=== PATIENT | male | born 1975 | race Caucasian/White ===

== ENCOUNTER → 2023-06-05 07:23 | Outpatient (REF) | payer BC, SELFPAY | LOC: DHCBS HW 07:23 | PROVIDERS: ATTENDING PHYSICIAN Nuclear Medicine Nuclear Cardiology; FAMILY PHYSICIAN Internal Medicine | DX: R07.9 Chest pain, unspecified (principal); R06.09 Other forms of dyspnea; E11.9 Type 2 diabetes mellitus without complications; E78.2 Mixed hyperlipidemia; R55 Syncope and collapse; F17.200 Nicotine dependence, unspecified, uncomplicated | CPT/HCPCS: 93306 ==

== ENCOUNTER → 2023-06-06 07:42 | Outpatient (REF) | payer BC, SELFPAY | LOC: DHCBC/DCA 07:42 | PROVIDERS: ATTENDING PHYSICIAN Nuclear Medicine Nuclear Cardiology; FAMILY PHYSICIAN Internal Medicine | DX: R07.9 Chest pain, unspecified (principal); R06.09 Other forms of dyspnea; E11.9 Type 2 diabetes mellitus without complications; E78.2 Mixed hyperlipidemia; R55 Syncope and collapse; F17.200 Nicotine dependence, unspecified, uncomplicated | CPT/HCPCS: 78452; 93017; A9500 ==

== ENCOUNTER 2023-06-14 08:52 | Day surgery (SDC) | payer BC, SELFPAY ==
[2023-06-14] MEDS: NSS 1000 IV ×2 (09:45→13:00)
[2023-06-14 09:46] VITALS: BMI 28.2
[2023-06-14 09:48] LABS: Glucose - Point of Care 217 mg/dl (70-99)
[2023-06-14 09:55] VITALS: BP 130/83
[2023-06-14] MEDS: LOW STRENGTH ASPIRIN 81 MG PO ×5 (10:15→10:29)
[2023-06-14 10:58] LABS: Hematocrit 39.4 % (39.0-52.0); Hemoglobin 13.9 g/dL (13.0-18.0); Mean Corp Hgb Conc. 35.3 g/dL (33.0-37.0); Mean Corpuscular Hgb 30.3 pg (27.0-31.0); Mean Platelet Volume 10.3 fL (7.4-10.4); Platelet Count 221 10^3/uL (130-400); Red Blood Cell Count 4.58 10^6/uL (4.70-6.10); Red Cell Dist. Width 12.2 % (11.5-14.5); White Blood Cell Count 13.3 10^3/uL (4.8-10.8)
[2023-06-14 11:58] LABS: ACT-LR - POC 229 Seconds (116-155)
--- NOTE | 2023-06-14 13:11 | ITS.CL.CATH ---
[facility] - Catheterization
Cardiac Catheterization
Procedure Report:
LEFT HEART CATHETERIZATION
Date of Procedure: June 14, 2023
Referring: Dr. Tanvir Stephenson
PROCEDURES:
1. Left heart catheterization with coronary and single-plane left-ventricular free
2. Hemodynamic assessment of the LAD with the iFR measuring below the ischemic threshold
INDICATION: This is a 48-year-old diabetic gentleman with a recent hemoglobin A1c measuring 11.9%. His last LDL cholesterol measured 165 mg/dL. He was referred to our office for evaluation of hypertension and chest pressure. He has a history of
tobacco abuse less than 1/2 pack/day for many years. He has noticed some chest and back tightness with exertion as well as dyspnea on exertion. A recent stress study was notable for the development of chest tightness with exercise. He exercised
on a standard Kevin protocol for 7: 46 achieving 8.75 METS of physical activity. Exercise tolerance was below average. Perfusion was notable for a medium area of mildly decreased uptake that was fixed in the basal inferior to mid inferior segment
and apical inferior segment consistent with infarction with soft tissue attenuation which partially improves with prone imaging. The LVEF is estimated at 42% on the stress study and 40-45% by echocardiogram where global hypokinesis was noted.
ACCESS: Right radial artery, 6 Fr. sheath
HEMODYNAMICS : (mmHg)
AO (s/d) : 148/82
LV (s/d) : 148/12
LVEDP : 28
CORONARY FINDINGS
DOMINANCE: Left
LEFT MAIN: Normal
LEFT ANTERIOR DESCENDING: The LAD arises normally from the left main and has a 30% calcified ostial stenosis greater than 50% stenosis in the mid LAD beyond the second diagonal branch. The mid to distal LAD has minor irregularities. The first
diagonal branch is rather small. The second diagonal branch has a 40% mid stenosis. The distal LAD wraps completely around the apex supplying a portion of the inferior wall. The iFR in the apical LAD serially measured at or below the ischemic
threshold at 0.85, 0.84, 0.86, 0.86, 0.88, 0.89
CIRCUMFLEX: The circumflex is a dominant vessel. OM1 is small. OM 2 is large and bifurcates proximally with a long 50-60% stenosis near its origin extending into the larger daughter branch beyond the bifurcation. The mid circumflex beyond the
second obtuse marginal branch has a 60% stenosis then a long 65% stenosis. The distal circumflex gives rise to a small caliber PDA.
RIGHT CORONARY ARTERY: Medium caliber nondominant vessel with 50% mid stenosis. There is a marginal branch arising from the nondominant vessel that has an 95% proximal stenosis
VENTRICULOGRAPHY: Left ventriculography was performed in an VIERA projection. The digital single-plane left ventricular ejection fraction is visually estimated at 45-50%
HEMODYNAMIC ASSESSMENT OF THE LAD WITH A [place] VERRATA WIRE: The origin of the left main was cannulated with a 6 Fr JL 4 guide catheter. Intravenous heparin was administered and the ACT was followed during the procedure. Two hundred micrograms
of intracoronary nitroglycerin was given through the guide catheter. A [place] Verrata wire was advanced to the guide catheter tip and normalized to guide catheter pressure. The Verrata wire was then carefully manipulated across the stenosis at
the origin of the LAD and beyond the stenosis in the mid LAD. The tip of the wire was positioned in the distal LAD where the iFR serially measured at the ischemic threshold at 0.88, 0.89, and 0.90. The Verrata wire was withdrawn to the guide
catheter and there appeared to be baseline drift with the Pd/Pa measuring 0.96. The Verrata wire was re-normalized to the guide catheter pressure then readvanced to the distal LAD where the iFR serially measured below the ischemic threshold in the
more significant manner with the iFR now measuring 0.86, 0.86, 0.84, and 0.85. The wire was withdrawn to the guide catheter tip where the Pd/Pa measured 0.98.
RADIATION SUMMARY: Fluoro Time (min): 9.6, Dose (mGy): 934, DAP (Gy.cm2) : 74.2
Closure Device: TR band
CONCLUSIONS
1. Left dominant circulation with complex atherosclerotic disease involving OM 2 and the AV continuation of the circumflex to the PDA. The iFR in the LAD was measured on 2 separate occasions. The first iFR measurements were at the ischemic
threshold while the second IFR series of measurements measured below the ischemic threshold at 0.86, 0.86, 0.84, and 0.85. There is high-grade atherosclerotic disease in the nondominant right coronary artery and should be treated medically
2. Mid range LVEF estimated 45-50%
RECOMMENDATIONS
1. Patient will be referred for CT surgical evaluation to consider coronary artery bypass grafting with VO-LAD, D2, OM 2, and PDA.
2. Aspirin 81 mg daily
3. Continue high intensity statin therapy
4. Start carvedilol 3.125 mg p.o. twice daily and lisinopril 2.5 mg daily given diabetes, borderline LVEF, and extensive coronary artery disease. Needs aggressive control of blood pressure and lipids
5. Needs strict control of his diabetes which is currently not well-controlled with a last hemoglobin A1c measuring 11.9%
Copy to: Dr. Tanvir Stephenson
[2023-06-14 13:15] VITALS: BP 124/93
[2023-06-14 13:25] VITALS: BP 147/87
[2023-06-14 13:29] LABS: ACT-LR - POC > 397 Seconds (116-155)
== END 2023-06-14 16:16 | disposition home or self-care (01) ==
LOC: CATH 08:52
PROVIDERS: ATTENDING PHYSICIAN Internal Medicine Interventional Cardiology; FAMILY PHYSICIAN Internal Medicine; OTHER PHYSICIAN Nuclear Medicine Nuclear Cardiology
DX: I25.10 Atherosclerotic heart disease of native coronary artery without angina pectoris (principal); R07.89 Other chest pain; Z87.891 Personal history of nicotine dependence; R06.09 Other forms of dyspnea; R73.03 Prediabetes; Z79.82 Long term (current) use of aspirin; Z79.84 Long term (current) use of oral hypoglycemic drugs
CPT/HCPCS: 82962; 85027; 85347; 93458; 93571; C1769; C1894

== ENCOUNTER 2023-07-08 05:03 | Inpatient (IN) | payer BC, SELFPAY ==
[2023-06-27 08:38] VITALS: BMI 27.9
[2023-06-27 09:28] LABS: % Basophils 0.3 % (0-2); % Eosinophils 1.9 % (0-6); % Immature Granulocytes 0.5 % (0-0.5); % Lymphocytes 16.3 % (20.5-51.1); % Monocytes 5.8 % (1.7-9.3); % Neutrophils 75.2 % (42.2-75.2); Absolute Eosinophils 0.2 10^3/uL (0-0.7); Absolute Immature Granulocytes 0.1 10^3/uL (0-0.05); Absolute Monocytes 0.7 10^3/uL (0.1-0.6); Absolute Neutrophils 9.4 10^3/uL (1.4-6.5); Hematocrit 43.4 % (39.0-52.0); Hemoglobin 14.9 g/dL (13.0-18.0); Mean Corp Hgb Conc. 34.3 g/dL (33.0-37.0); Mean Corpuscular Hgb 29.6 pg (27.0-31.0); Mean Corpuscular Volume 86.1 fL (80.0-94.0); Mean Platelet Volume 10.6 fL (7.4-10.4); Nucleated Red Blood Cells % 0 % (-); Platelet Count 299 10^3/uL (130-400); Red Blood Cell Count 5.04 10^6/uL (4.70-6.10); Red Cell Dist. Width 12.5 % (11.5-14.5); White Blood Cell Count 12.5 10^3/uL (4.8-10.8)
[2023-06-27 09:40] LABS: Urine Albumin 2+ (Neg - Trace); Urine Bilirubin 1+ (Negative); Urine Character Clear (Clear); Urine Color Yellow; Urine Glucose Trace (Negative); Urine Ketone 1+ (Negative); Urine Leukocyte Trace (Negative); Urine Nitrite Negative (Negative); Urine Occult Blood Negative (Negative); Urine Urobilinogen 1+ (Neg - 1+)
[2023-06-27 09:42] LABS: APTT 34.8 Sec (23.4-35.0); INR 1.04; PT 13.6 Sec (11.4-14.6)
[2023-06-27 10:36] LABS: Urine Red Blood Cell 0-2 /HPF (0-2)
[2023-06-27 10:37] LABS: Urine Bacteria Few (Negative)
--- NOTE | 2023-06-27 10:56 | CM ---
Chart reviewed. Met with the patient in PAT. 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 Patient with a supportive mother and adult daughter who live close by to help at home.
Reviewed preoperative and postoperative instructions and restrictions, along with showering instructions. Gave patient 2 soaps. Patient is agreeable to a home visit by CT Transitional RN. Dr Lovell requested the patient receive a script for GERD
and smoking cessation. I notified Calli. Patient was given a script for both and told to follow up with PCP for Chantix. Plan is for the patient to return home with CT Transitional RN.
[2023-06-27 11:15] LABS: ALT (SGPT) 36 U/L (0-50); AST (SGOT) 30 U/L (17-59); Albumin 4.4 g/dl (3.5-5.0); Alkaline Phosphatase 96 U/L (38-126); Blood Urea Nitrogen 11 mg/dl (9-20); Calcium 9.9 mg/dl (8.4-10.2); Carbon Dioxide 25 mmol/L (22-30); Chloride 102 mmol/L (98-107); Estimated Creatinine Clearance > 125 ml/min; Glucose 154 mg/dl (70-99); Potassium 4.2 mmol/L (3.5-5.1); Sodium 140 mmol/L (135-145); Total Bilirubin 0.4 mg/dl (0.2-1.3); Total Protein 8.1 g/dl (6.3-8.2); eGFR > 60.00
[2023-06-28 11:15] LABS: Glycohemoglobin (HgbA1c) 10.2 % (4.0-5.6)
[2023-07-08] VITALS (9 sets, daily range): BP systolic 82–122; BP diastolic 65–72; BMI 27.0
[2023-07-08] MEDS: PROTONIX 40 MG PO (05:30)
[2023-07-08] MEDS: MAGNESIUM OXIDE 500 MG PO (05:30)
[2023-07-08] MEDS: COREG 3.125 MG PO (05:30)
[2023-07-08] MEDS: BACTROBAN 2% OINTMENT 1 APPLIC NASAL ×2 (05:31→20:16)
--- NOTE | 2023-07-08 06:37 | W.CVOR.SURPR ---
CVOR Surgeon Immed Pre Op
-
I have examined this patient prior to performance of the scheduled procedure.
The patient's condition is unchanged from the time of the dictated/written History and
Physical and the patient is able to undergo the scheduled procedure.
After multidisciplinary discussions, revascularization plans include LENKA to LAD, GSV to D, GSV to OM, +/- GSV to PDA (small - requires intraoperative assessment)
[2023-07-08 08:11] LABS: Urine Albumin 1+ (Neg - Trace); Urine Bilirubin Negative (Negative); Urine Character Clear (Clear); Urine Color Yellow; Urine Glucose Negative (Negative); Urine Ketone Negative (Negative); Urine Leukocyte Negative (Negative); Urine Nitrite Negative (Negative); Urine Occult Blood Negative (Negative); Urine Specific Gravity 1.025 (<1.030); Urine Urobilinogen Negative (Neg - 1+)
[2023-07-08 08:18] LABS: ACT+ - POC 101 Seconds (82-134)
[2023-07-08 08:23] LABS: B.E. - POC -1.9 mmol/L; Glucose - POC 101 mg/dl (65-99); HCO3 - POC 23 mmol/L (21-29); Hematocrit - POC 35 % PCV (42-52); Hemodilution- POC No; Hemoglobin Calculated - POC 12.1; Ionized Calcium - POC 1.18 mmol/L (1.12-1.27); O2 Saturation %Calculated-POC 99.9 5 (92-96); PCO2 - POC 39 mmHg (35-45); PO2 - POC 315 mmHg (80-100); Potassium - POC 4.1 mmol/L (3.6-5.0); Sodium - POC 140 mmol/L (135-145); pH - POC 7.38 (7.35-7.45)
[2023-07-08 08:43] LABS: Urine Mucus Many
[2023-07-08 08:44] LABS: Urine Calcium Oxalate Crystals Seen
[2023-07-08 08:45] LABS: Urine Bacteria Many (Negative); Urine Urothelial Cell 0-2 /LPF (FEW)
--- NOTE | 2023-07-08 11:01 | CM ---
pt in OR today, cm to follow.
[2023-07-08 11:09] LABS: B.E. - POC -1.5 mmol/L; Glucose - POC 205 mg/dl (65-99); HCO3 - POC 24 mmol/L (21-29); Hematocrit - POC 31 % PCV (42-52); Hemodilution- POC Yes; Hemoglobin Calculated - POC 10.7; Ionized Calcium - POC 0.97 mmol/L (1.12-1.27); O2 Saturation %Calculated-POC 99.9 5 (92-96); PCO2 - POC 40 mmHg (35-45); PO2 - POC 266 mmHg (80-100); Potassium - POC 5.4 mmol/L (3.6-5.0); Sodium - POC 136 mmol/L (135-145); pH - POC 7.38 (7.35-7.45)
[2023-07-08 11:37] LABS: B.E. - POC -2.6 mmol/L; Glucose - POC 208 mg/dl (65-99); HCO3 - POC 23 mmol/L (21-29); Hematocrit - POC 30 % PCV (42-52); Hemodilution- POC Yes; Hemoglobin Calculated - POC 10.2; Ionized Calcium - POC 1.08 mmol/L (1.12-1.27); O2 Saturation %Calculated-POC 99.7 5 (92-96); PCO2 - POC 43 mmHg (35-45); PO2 - POC 203 mmHg (80-100); Potassium - POC 4.1 mmol/L (3.6-5.0); Sodium - POC 139 mmol/L (135-145); pH - POC 7.34 (7.35-7.45)
[2023-07-08 11:42] LABS: ACT+ - POC 641 Seconds (82-134)
[2023-07-08 12:20] LABS: B.E. - POC -3.8 mmol/L; Glucose - POC 163 mg/dl (65-99); HCO3 - POC 22 mmol/L (21-29); Hematocrit - POC 30 % PCV (42-52); Hemodilution- POC Yes; Hemoglobin Calculated - POC 10.3; Ionized Calcium - POC 1.11 mmol/L (1.12-1.27); O2 Saturation %Calculated-POC 99.8 5 (92-96); PCO2 - POC 44 mmHg (35-45); PO2 - POC 271 mmHg (80-100); Potassium - POC 4.2 mmol/L (3.6-5.0); Sodium - POC 138 mmol/L (135-145); pH - POC 7.32 (7.35-7.45)
[2023-07-08 12:22] LABS: ACT+ - POC 548 Seconds (82-134)
[2023-07-08 12:23] LABS: ACT+ - POC > 1003 Seconds (82-134)
[2023-07-08 12:23] LABS: ACT+ - POC > 1003 Seconds (82-134)
[2023-07-08 13:05] LABS: ACT+ - POC 98 Seconds (82-134)
[2023-07-08 13:06] LABS: B.E. - POC -6.7 mmol/L; Glucose - POC 111 mg/dl (65-99); HCO3 - POC 20 mmol/L (21-29); Hematocrit - POC 30 % PCV (42-52); Hemodilution- POC Yes; Hemoglobin Calculated - POC 10.1; Ionized Calcium - POC 1.39 mmol/L (1.12-1.27); O2 Saturation %Calculated-POC 99.9 5 (92-96); PCO2 - POC 44 mmHg (35-45); PO2 - POC 347 mmHg (80-100); Potassium - POC 3.3 mmol/L (3.6-5.0); Sodium - POC 143 mmol/L (135-145); pH - POC 7.26 (7.35-7.45)
--- NOTE | 2023-07-08 13:35 | W.PN.CARDCBS ---
Addendum entered and electronically signed by Simon Almendarez MD 07/08/23 16:18:
I saw and examined the patient.
The PNP or PA's note was reviewed and I agree with the note.
Comment: General: Sedate
Neck: Supple, no JVD, HJR, carotids +2 B/L, no bruits bilaterally.
Heart: Non displaced PMI, RRR, no obvious murmurs, No S3, S4, no rubs.
Lungs: Scattered rhonchi
Sternal dressings noted
Extremities: No clubbing, cyanosis or edema bilaterally.
Neuro: Sedate
Claudy has a history of cardiomyopathy, type 2 diabetes, hyperlipidemia, hypertension, tobacco abuse. Ejection fraction was 45 to 50% in May 2023. He underwent catheterization which revealed three-vessel disease. He is now seen status post
three-vessel CABG with VO to LAD, vein graft to diagonal, vein graft to OM. He remains intubated and sedate. He is on no pressors at present and cardiac index is 2.7. Remains in sinus rhythm.
Original Note:
Today's Communication / Plan
-
Wean vent as tolerated, anticipated extubation later this evening
Post op ECG stable
Currently requiring Levo, wean as tolerated
Monitor post op Hgb and electrolytes
Impression / Plan
-
PCP:
Data Capture Specialist: Dr. Stephenson
Impression:
Chest pain
Abnormal stress test
Multivessel CAD on cardiac cath 06/14/23
s/p CABG x 3 (VO to LAD, SVG to diag, SVG to OM) 07/08/2023
Cardiomyopathy
Type 2 diabetes
Hyperlipidemia
Hypertension
Tobacco abuse
Echo 06/05/2023: EF 45-50%. Stage I DD. No significant valvular disease
Exercise nuclear ST 06/06/2023: 7:46, 90% APMHR, 8.75 METS, 4/10 CP; Fixed defect in basal inferior, mid inferior, apical inferior segments c/w infarct vs soft tissue attenuation. DTS +3.5
Cardiac cath 06/14/2023: LM:NL; LAD:ost 30%, mid 50%, distal LI, iFR in the apical LAD serially measured at or below the ischemic threshold at 0.85, 0.84, 0.86, 0.86, 0.88, 0.89; Diag2 mid 40%; LCX:mid 60% then long 65%; OM2 prox 50-60%; RCA mid 50%,
marginal prox 95%; LVG EF 45-50%
Plan:
-Evaluated as outpt in April 2023 for with exertional CP, TORRES. Had abnormal stress test and reduced EF on echo 45-50% in May 2023 and underwent cardiac cath 06/14/2023 which demonstrated multivessel CAD.
-Underwent successful CABG x 3 ((VO to LAD, SVG to diag, SVG to OM) 07/08/[address] Gama
-Patient seen immediate post op, remains intubated and sedated
-Currently on Levo at 2 mcg/min. Wean as tolerated
-Post op ECG stable showing Sinus rhythm, QTc 500 ms. Monitor on tele
-Follow hgb, immediate post op 10.6
-Cardiomyopathy resume GDMT once able to tolerate orals {Was on Coreg, Lisinopril, ASA, Crestor as outpatient}
-HgA1c 11.2% on outpt labs 05/18/23; started on Metformin, Ozempic as outpatient
-Hyperlipidemia, resume high dose Crestor when able to tolerate orals
HPI:
This is a 48-year-old diabetic gentleman with a recent hemoglobin A1c measuring 11.9%.� His last LDL cholesterol measured 165 mg/dL.� He was referred to our office for evaluation of hypertension and chest pressure.� He has a history of tobacco abuse
less than 1/2 pack/day for many years.� He has noticed some chest and back tightness with exertion as well as dyspnea on exertion.� A recent stress study was notable for the development of chest tightness with exercise.� He exercised on a standard
Kevin protocol for 7: 46 achieving 8.75 METS of physical activity.� Exercise tolerance was below average.� Perfusion was notable for a medium area of mildly decreased uptake that was fixed in the basal inferior to mid inferior segment and apical
inferior segment consistent with infarction with soft tissue attenuation which partially improves with prone imaging.� The LVEF is estimated at 42% on the stress study and 40-45% by echocardiogram where global hypokinesis was noted.
Progress Note - Data Capture Specialist
Subjective
Date of Service: July 08, 2023
Patient seen and examined. Remains intubated and sedated. On low dose Levo at 2 mcg/min
Objective
Labs:
06/27/23 08:52
06/27/23 08:52
Labs
Hgb 14.9 g/dL (13.0-18.0) 06/27/23 08:52
Hct 43.4 % (39.0-52.0) 06/27/23 08:52
Plt Count 299 10^3/uL (130-400) 06/27/23 08:52
PT 13.6 Sec (11.4-14.6) 06/27/23 08:52
INR 1.04 06/27/23 08:52
APTT 34.8 Sec (23.4-35.0) 06/27/23 08:52
Sodium 140 mmol/L (135-145) 06/27/23 08:52
Potassium 4.2 mmol/L (3.5-5.1) 06/27/23 08:52
BUN 11 mg/dl (9-20) 06/27/23 08:52
Creatinine 0.7 mg/dL (0.7-1.3) 06/27/23 08:52
Glucose 154 mg/dl (70-99) H 06/27/23 08:52
Vital Signs and I&O:
Vital Signs
Temp Pulse Resp Pulse Ox
97.7 F 96 16 100
07/08/23 05:29 07/08/23 05:29 07/08/23 05:29 07/08/23 05:29
Vital Signs
Temp Pulse Resp Pulse Ox
97.7 F 96 16 100
07/08/23 05:29 07/08/23 05:29 07/08/23 05:07/08/23 05:29
Physical Exam
Physical Exam
GEN: Intubated and sedated
HEENT: supple, anicteric, mmm
LUNGS: CTA, no wheezes/rales
CV: Reg, S1/S2, + rub
ABD: soft, BS+, NT/ND
EXT: No edema, clubbing or cyanosis
NEURO: unable to assess, currently sedated
SKIN: No rash, warm, dry
--- NOTE | 2023-07-08 13:37 | W.IMMPOSTOP ---
Addendum entered and electronically signed by Juancarlos Gama MD 07/08/23 15:01:
[id number]
Original Note:
Surgical Immed Post Op Note
-
CARDIAC SURGERY OPERATIVE NOTE:
Preoperative Dx:
Multivessel CAD
Poorly controlled DM
Postoperative Dx:
Same
Procedures:
1) Median sternotomy
2) Takedown of LENKA (narrow pedicle)
3) Endoscopic harvest/prep of RLE GSV
4) CABG x 3 (LENKA to LAD, GSV to D, GSV to OM)
Surgeon:
Juancarlos Gama M.D.
Assistants:
Marsha Stahl P.A.-C.; endoscopic harvest/prep of RLE GSV, cafe assistant throughout, [id number] chest closure
Bianca Marie P.A.-C.; closure of endoscopic RLE GSV harvest sites, [id number] check closure
Anesthesia:
Benny Drake M.D. and Etelvina Main, C.R.N.A.
Perfusion:
Geneva Gonsalez C.C.P.; XC: 87min, CPB: 125min
Findings:
LENKA was a healthy appearing conduit w/ brisk flow, ELD 2.25mm
GSV was healthy appearing conduit w/ ELD 3.00-3.25mm
The apical 1/3 of the LAD was visible on the epicardial surface, the vessel took a deep intramyocardial course at the junction between it's middle and distal third. The vessel was thin walled and fragile, but was devoid of lipomatous changes &
atherosclerotic disease at anastomotic site, ELD 2.50mm - very brisk blood flow observed entering LAD & it's tributaries upon release of bulldog clamp
The major D was visible on the epicardial surface. This vessel had scattered calcifications and lipomatous changes throughout. At the anastomotic site, the vessel was thin walled and fragile, but was devoid of lipomatous changes & atherosclerotic
disease. ELD 2.50mm
The OM was visible on the epicardial surface. This vessel had scattered calcifications and lipomatous changes throughout. At the anastomotic site, the vessel was thin walled and fragile, but was devoid of lipomatous changes & atherosclerotic
disease. ELD 2.75mm. Upon completion of the first anastomosis at this site, hand injected revealed unexpected significant leaking by the right lateral aspect of the anastomosis by the heal. The anastomotic sutures looked ideal. I therefore was
concerned about coronary pathology & opted to take down this anastomosis. Upon inspection the coronary had suffered a tear at this location extending down from the suture to the base of the vessel. This was amenable to repair w/ slight extension
of the coronary arteriotomy & re-anastomosis. I was very pleased w/ the final result.
The LPDA/LPLB were all submillimeter vessels - bypass not performed
Excellent flow in all grafts on intraoperative transit-time U/S assessment
LVEF: 60-65% w/o RWMA and no sig valvular pathology.
Implants:
CT x 4 (B/L pleural, inferior mediastinal, superior mediastinal)
Sternal wires x 7
Sternal 'X' plate w/ 4 - 16mm and 4 - 14mm screws
Sternal 'Square' plate w/ 4 - 12mm screws
Condition:
86 sinus w/ isoelectric STs. 112/64. 27/19. CVP 11. CO/CI: 4.3/2.11. 100%
GTTS: insulin 0.5, precedex 0.5, levophed 6
Stable/guarded to recovery
--- NOTE | 2023-07-08 14:03 | CON.INTV ---
Consultation
Consultation Request
Date/Time Consultation Requested: 07/08/2023
Date/Time Consultation Performed: 07/08/2023
Requesting Provider: Dr. Gama
Performing Provider: Dr. Bo Fuentes
Reason for Consultation: Postoperative ICU care
Medical History
-
History of Present Illness:
48-year-old man with history of poorly controlled diabetes, who is a smoker, hypertension discovered to have multivessel coronary artery disease. He was evaluated by cardiothoracic surgery in the outpatient setting and he was deemed candidate for
revascularization. Admitted for surgery, coronary artery bypass underwent on 07/08/[address] Gama without significant complications.
Patient currently is in the critical care unit where he is intubated, sedated.
Chest tube in place without air leak.
ET tube in place without secretions
Records reviewed.
Past Medical History
Past Medical History: Other (See assessment and plan section)
Social History
Tobacco: Smoker (Started smoking at age 7, half a pack per day)
Alcohol: Other (Weekends.)
Drug: None
Personal:
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
Family History
Family History: Unable to Obtain
Allergies / Home Medications
Allergies
Allergy/AdvReac Type Severity Reaction Status Date / Time
codeine Allergy Itching Verified 06/26/23 14:52
Home Medications
Medication Instructions Recorded Confirmed Last Taken Type
aspirin 81 mg chewable tablet 81 mg PO DAILY #1 tab 06/14/23 07/08/23 1 Day Ago Rx
~07/07/23
carvedilol 3.125 mg tablet 3.125 mg PO BID #60 tabs 06/14/23 07/08/23 07/07/23 20:00 Rx
lisinopril 2.5 mg tablet 2.5 mg PO DAILY #30 tabs 06/14/23 07/08/23 07/07/23 08:00 Rx
multivitamin 1 tab PO DAILY 06/14/23 07/08/23 1 Day Ago History
~07/07/23
rosuvastatin 40 mg tablet 40 mg PO DAILY 06/14/23 07/08/23 1 Day Ago History
~07/07/23
semaglutide 0.25 mg or 0.5 mg (2 0.5 mg SC SA 06/14/23 07/08/23 1 Day Ago History
mg/3 mL) subcutaneous pen injector ~07/07/23
(Ozempic)
metformin 1,000 mg tablet 1,000 mg PO BID 06/26/23 07/08/23 07/07/23 20:00 History
Review of Systems
-
Unable to Obtain full review of systems at this time due to: Patient Intubation
Vitals / Labs / Diagnostic Testing
Vital Signs
Temp Pulse Resp Pulse Ox
97.7 F 96 16 100
07/08/23 05:29 07/08/23 05:29 07/08/23 05:29 07/08/23 05:29
Diagnostic Testing:
Physical Exam
-
HEENT: Normocephalic and Other ( ET tube in place)
Cardiovascular: S1/S2 and Other (Incision dressed and dry.)
Respiratory: Clear and Other (Chest tube in place without air leak)
GI: Soft
Neurology: Other (Sedated, on mechanical ventilation. Intubated.)
Skin: Good Color
General: Respiratory Distress (n)
Assessment
-
Status post coronary artery bypass Dr. Gama
Postoperative mechanical ventilation
Postoperative anemia
Conditions present prior admission:
Type 2 diabetes
Hyperlipidemia
Tobacco abuse
Hypertension
Multivessel coronary artery disease
Echocardiogram 06/05/2023: Showed ejection fraction 45 to 50%. Stage I diastolic dysfunction. No significant valvular abnormalities.
Plan/ recommendations:
He is doing well postop-currently on mechanical ventilation and appears comfortable.
ABG reviewed:Adequate ventilation and oxygenation.
Continue SIMV mode with no change
Spontaneous breathing trial per protocol once sedation wears off.
Anemia noted-no evidence of acute bleeding
Follow H&H serially
Hemodynamics -acceptable without vasoactive drugs.
Chest tube with no excessive drainage-no air leak.
Chest x-ray reviewed: With no pneumothorax or fluid collections.
Remain nothing by mouth
Head of the bed elevation
Glycemic control per protocol, Insulin gtt.
DVT prophylaxis when safe from the surgical perspective.
Critical care statement: A total of 32 minutes of critical care time was provided for this patient today. This includes management of unstable vital signs, evaluation of the patient at bedside, reviewing the patient's pertinent medical records
including ventilator settings, arterial blood gases, radiographs, microbiology, laboratory evaluations and discussion with primary team, critical care nursing, and respiratory therapy.
[2023-07-08] MEDS: NSS 500 IV (14:30)
[2023-07-08] MEDS: ZINACEF 1500 MG IV ×2 (14:30→17:27)
[2023-07-08] MEDS: STERILE WATER FOR INJECTION 16 ML IV ×2 (14:30)
--- NOTE | 2023-07-08 14:30 | PTCARENOTE ---
Updated report received at bed side from anesthesia staff. Patient recieved status post CABG x 3: usual lines, NSR. No epicardial wires. No blood products intraop. CI's > 2.2. CHest tubes x 4 meds x 2 and R/L pleural: no 'dumping.' Remains intubated
and sedated/vented. Incidental finding as per cvor: patient has genital warts under foreskin penis. See flowrecord for remaining assessments.
[2023-07-08 14:33] LABS: Glucose - Point of Care 115 mg/dl (70-99)
[2023-07-08 14:49] LABS: Hematocrit 30.1 % (39.0-52.0); Hemoglobin 10.6 g/dL (13.0-18.0); Platelet Count 188 10^3/uL (130-400)
[2023-07-08 14:50] LABS: B.E. -3.7 mmol/L; HCO3 22.1 mmol/L (21-28); Ionized Calcium 1.26 mMOL/L (1.15-1.33); PCO2 42 mmHg (35-48); PO2 213 mmHg (83-108); Sodium 139 mMOL/L (136-145); pH 7.33 (7.35-7.45)
[2023-07-08 14:52] LABS: Mixed Venous O2 Saturation 86.8 %
[2023-07-08] MEDS: NSS (PRESERVATIVE FREE) 8 ML IV ×2 (14:56→20:17)
[2023-07-08] MEDS: PEPCID 20 MG IV ×2 (14:56→20:17)
[2023-07-08 15:00] LABS: INR 1.37; PT 16.7 Sec (11.4-14.6)
[2023-07-08 15:01] LABS: APTT 30.6 Sec (23.4-35.0)
[2023-07-08 15:04] LABS: Blood Urea Nitrogen 11 mg/dl (9-20); Estimated Creatinine Clearance > 125 ml/min; Glucose 110 mg/dl (70-99); Magnesium 2.5 mg/dl (1.6-2.3)
--- NOTE | 2023-07-08 15:06 | PN.DE.MGMTRT ---
Insulin Management
- -
07/08/2023: Diabetes Management Consult
48 year old male admitted 07/[address] surgery.
He is now s/p CABG. Doing well postop, currently on mechanical ventilation, unable to interview, appears comfortable.
PMH includes: CAD- MVD, HTN, HLD, active tobacco use, T2DM. A1C 10.2%, was taking Ozempic 0.5mg Q Sat and Metformin 1000mg BID.
He is currently on critical care glycemic protocol and will remain on drip x [address] surgery protocol.
Will continue to follow and assess for readiness to transition to SQ insulin in combination with his OP regimen.
Diabetes History
- -
Type of Diabetes: 2
Pre-Admission Diabetes Regimen
07/08/23
14:32
Creatinine 0.7
Lab Results
Hemoglobin A1c 10.2 % (4.0-5.6) H 06/27/23 08:52
Insulin Pump Settings
IP Diabetes Regimen
07/08/23 07/08/23
14:31 14:32
Glucose 110 H
POC Glucose 115 H
Patient Education
[2023-07-08] MEDS: ALBUMIN 5% 250 IV ×2 (15:10→18:00)
[2023-07-08] MEDS: VERSED 0.5 MG IV (15:30)
--- NOTE | 2023-07-08 16:00 | PTCARENOTE ---
Following simple commands and moving all extremities x 4. CPAP wean trial.
[2023-07-08 16:09] LABS: Glucose - Point of Care 150 mg/dl (70-99)
--- NOTE | 2023-07-08 16:40 | W.PN.UPDATE ---
Update Note
Progress Note Update
48-year-old man with history of poorly controlled diabetes, who is a smoker, hypertension discovered to have multivessel coronary artery disease.� He was evaluated by cardiothoracic surgery in the outpatient setting and he was deemed candidate for
revascularization.� Admitted for surgery, coronary artery bypass underwent on 07/08/[address] Gama without significant complications.
Crystalloid:� 1800
U.O.:� 500
UF:� 1800
Blood:� None
Wires:� None
Inotropes:� None
Pressors:� Levo
Sedatives:� Precedex
�
NEURO: sedated on precedex, pupils +1mm B/L
RESP: #8OT @24cm> 14/500/60/5. Lungs clear B/L. 2 mediastinal (0cc on arrival) and R/L pleural (40cc on arrival) chest tubes to -20cm suction. Sanguineous drainage
CV: RRR +S1, S2, no S3, no�rub, no murmur. Dermabond to median sternotomy. RIJ w/[place] locked @ 51cm.
ABD: round, soft, no BS
EXT: no edema, +2/4 DP pulses B/L, no femoral bruit, Right LE ALEC wrap intact; left radial A-line intact
: [place] with clear yellow urine
�
A/P: POD #0 s/p CABG x3 (VO-LAD, SVG- Diag, SVG-OM)
BRITTNEE: EF�60-65% w/o RWMA
- wean and extubate as able
- will need instruction regarding antibiotic prophylaxis for dental and invasive procedures
- Wean levo with MAPs >65
- ASA 81mg PO when tolerating PO
- Monitor CT output
- Monitor UOP
- Monitor EKG
- Cardiology consulted
�
# acute surgical blood loss anemia-expected
- trend CBC
�
# T2DM (A1C 10.2)
- insulin infusion x 48h
- resume metformin
- DM management HOME STAGER consulted
�
# Hyperlipidemia
- resume�statin when tolerating PO
[2023-07-08 17:18] LABS: Glucose - Point of Care 107 mg/dl (70-99)
[2023-07-08 17:21] LABS: HCO3 23.1 mmol/L (21-28); Ionized Calcium 1.17 mMOL/L (1.15-1.33); O2 Saturation % 98.6 % (94-98); PCO2 40 mmHg (35-48); PO2 171 mmHg (83-108); Potassium 3.9 mMOL/L (3.5-5.1); pH 7.37 (7.35-7.45)
--- NOTE | 2023-07-08 17:30 | PTCARENOTE ---
Hemodynamically stable. ABG acceptable for extubation to 6l nasal canula.
[2023-07-08] MEDS: DILAUDID 0.25 MG IV ×2 (17:45→22:07)
[2023-07-08] MEDS: KCL 50 IV ×2 (17:46→18:42)
[2023-07-08] MEDS: CRESTOR PO (17:51)
[2023-07-08] MEDS: NOVOLOG FLEXPEN SC ×2 (17:51→17:52)
[2023-07-08] MEDS: PACERONE PO (17:53)
[2023-07-08] MEDS: TYLENOL PO ×2 (17:53)
[2023-07-08] MEDS: CALCIUM CHLORIDE 10% SYRINGE 50 MG IV (17:58)
[2023-07-08] MEDS: CALCIUM CHLORIDE 10% SYRINGE 50 ML IV (17:58)
[2023-07-08 18:18] LABS: Glucose - Point of Care 99 mg/dl (70-99)
[2023-07-08 18:25] LABS: Hematocrit 28.4 % (39.0-52.0); Hemoglobin 9.9 g/dL (13.0-18.0); Platelet Count 159 10^3/uL (130-400)
[2023-07-08 19:15] LABS: Glucose - Point of Care 103 mg/dl (70-99)
[2023-07-08] MEDS: ROXICODONE 5 MG PO (19:39)
[2023-07-08] MEDS: LOW STRENGTH ASPIRIN 81 MG PO (19:39)
--- NOTE | 2023-07-08 20:00 | PTCARENOTE ---
Pt received from taya RN. Pt AAOx3. Pt SR on monitor. HR 90s. +rub. [place] @48 cm CDI. CO: 6.25/ CI: 3.06/ SVR: 832. CVP: 6-10, PAP 20s/10s. CVP and PAP zeroed and flushed. Left arterial line CDI/zeroed/flushed. BP 100s/50s-60s. Mediastinal CT x2
to -20 suction, no air-leak/crepitus, +tidaling, output appropriate at this time. Right/Left pleural CT to -20 suction, no air-leak/crepitus, +tidaling, output appropriate at this time. Lung sounds diminished bilaterally at the base. Pt on
4 L NC. POX 99%. Temp sensing [place] catheter CDI and draining clear/yellow urine. Abdomen soft/nontender. Hypoactive BS. All surgical sites stable - assessment as documented in work-list. Right IJ cordis CDI. Right forearm PIV CDI. Glycemic protocol
followed. Pt c/o pain - see JUN.
[2023-07-08] MEDS: LOPRESSOR 12.5 MG PO (20:16)
[2023-07-08] MEDS: SENOKOT-S 1 TABLET PO (20:16)
[2023-07-08] MEDS: STERILE WATER FOR INJECTION 8.30000000000000071 ML IV (20:17)
[2023-07-08] MEDS: ZINACEF 750 MG IV (20:17)
[2023-07-08] MEDS: TYLENOL 650 MG PO (20:17)
[2023-07-08 21:10] LABS: Glucose - Point of Care 110 mg/dl (70-99)
[2023-07-08] MEDS: PACERONE 200 MG PO (22:08)
[2023-07-08 23:05] LABS: Glucose - Point of Care 94 mg/dl (70-99)
[2023-07-09] VITALS (26 sets, daily range): BP systolic 88–125; BP diastolic 62–78; PULSE 99; O2SAT 98–99; BMI 27.4
[2023-07-09] MEDS: TYLENOL 650 MG PO ×5 (00:07→20:48)
[2023-07-09] MEDS: ROXICODONE 5 MG PO ×2 (00:07→06:21)
--- NOTE | 2023-07-09 00:16 | PTCARENOTE ---
Pt reassessed. SR to sinus tach on monitor. HR 90s-100s. [place] intact. CVP/PAP zeroed and flushed. Left arterial line intact/zeroed/flushed. BP 100s-110s/50-60s. Pt on 2 L NC. POX 100%. CT assessment unchanged from previous. [place] catheter CDI. All
surgical sites stable. Glycemic protocol followed. Pt c/o pain - see MAR. Vital signs and interventions as documented.
[2023-07-09 01:08] LABS: Glucose - Point of Care 106 mg/dl (70-99)
[2023-07-09 02:09] LABS: Glucose - Point of Care 95 mg/dl (70-99)
[2023-07-09 03:04] LABS: Glucose - Point of Care 96 mg/dl (70-99)
[2023-07-09] MEDS: DILAUDID 0.25 MG IV (03:27)
[2023-07-09 03:38] LABS: Hematocrit 28.6 % (39.0-52.0); Hemoglobin 9.9 g/dL (13.0-18.0); Mean Corp Hgb Conc. 34.6 g/dL (33.0-37.0); Mean Corpuscular Hgb 29.7 pg (27.0-31.0); Mean Corpuscular Volume 85.9 fL (80.0-94.0); Mean Platelet Volume 10.8 fL (7.4-10.4); Platelet Count 161 10^3/uL (130-400); Red Blood Cell Count 3.33 10^6/uL (4.70-6.10); Red Cell Dist. Width 12.4 % (11.5-14.5); White Blood Cell Count 17.6 10^3/uL (4.8-10.8)
[2023-07-09 04:03] LABS: Blood Urea Nitrogen 12 mg/dl (9-20); Calcium 9.3 mg/dl (8.4-10.2); Carbon Dioxide 23 mmol/L (22-30); Chloride 104 mmol/L (98-107); Estimated Creatinine Clearance > 125 ml/min; Glucose 95 mg/dl (70-99); Potassium 4.2 mmol/L (3.5-5.1); Sodium 139 mmol/L (135-145); eGFR > 60.00
[2023-07-09 04:24] LABS: Glucose - Point of Care 100 mg/dl (70-99)
[2023-07-09] MEDS: STERILE WATER FOR INJECTION 8.30000000000000071 ML IV ×2 (04:32→11:52)
[2023-07-09] MEDS: ZINACEF 750 MG IV ×2 (04:33→11:51)
--- NOTE | 2023-07-09 04:34 | W.PN.CT ---
Today's Communication / Plan
-
-pod #1
-no issues overnight
-CI 3.51, CO 7.16. Drips: insulin
-CT output: 2 meds 90/160, 2 pleur 85/205 in 12/24 hrs
-deline
-continue insulin for 48 hrs
-d/c Arrington
-current meds (ASA, Crestor, Lopressor, Amio). Consider Plavix
-encourage IS, OOB
-appreciate everyone's input
Assessment / Plan
-
- mv-CAD - s/p CABG x 3 (LENKA to LAD, GSV to D, GSV to OM); EVH RLE on 07/08/[address] Gama, pod #1
- Intraop BRITTNEE: LVEF: 60-65% w/o RWMA and no sig valvular pathology
- T2DM (A1C 10.2)
- HTN/HLD
- Hx Near syncope
- Hx night sweats
- DVT of RUE
- Current smoker since age 7
- Hx R ankle fx
- Acute postop blood loss anemia- no active bleed
- Acute postop atelectasis
- Acute postop hypovolemia with subsequent hypervolemia
- Suspected acute postop pericarditis/+ rub
Discussed patient care with: Nursing and Care Team
Subjective
Procedure
- s/p CABG x 3 (LENKA to LAD, GSV to D, GSV to OM); EVH RLE on 07/08/[address] Gama
-
Date of Service: July 09, 2023
Objective Data
-
PT 16.7 Sec (11.4-14.6) H 07/08/23 14:32
INR 1.37 07/08/23 14:32
APTT 30.6 Sec (23.4-35.0) 07/08/23 14:32
Vital Signs
Vital Signs
Temp Pulse Resp BP Pulse Ox
98.5 F 101 16 101/71 100
07/09/23 00:00 07/09/23 00:00 07/09/23 00:00 07/09/23 00:00 07/09/23 00:00
CT Intake/Output/Weight
07/08/23 07/08/23 07/09/23
06:59 18:59 06:59
Intake Total 833.2 / 1051.8 218.6 / 1051.8
Output Total 590 / 1355 765 / 1355
Balance 243.2 / -303.2 -546.4 / -303.2
SaO2: 100
Physical Exam
-
General: Awake and AOx3
Cardiovascular: Regular rate & rhythm, No Murmurs and Rub
Respiratory: Decreased Breath Sounds
Sternum: Stable
Incision: Clean, Dry and Dressing Intact
Extremities: No Edema (1+ DP b/l)
Abdomen: soft, nontender, nondistended, decreased abdomen sounds
Data Reviewed
-
Lab Results: Results Reviewed
Medications: Active Meds Reviewed
Chest X-Ray: Report Reviewed and Image Reviewed
ECG: Report Reviewed and Image Reviewed
--- NOTE | 2023-07-09 04:44 | PTCARENOTE ---
Pt reassessed. SR to sinus tach on monitor. HR 90s-100s. BP 100s/60s. Pt on 2 L NC. POX 100%. CT assessment unchanged from previous. Left A-line dc'd per order. Wittman dc'd per order. All surgical sites stable. Arrington catheter CDI. Glycemic protocol
followed. Vital signs and interventions as documented in work-list. Call chu within reach.
[2023-07-09 06:18] LABS: Glucose - Point of Care 92 mg/dl (70-99)
--- NOTE | 2023-07-09 07:00 | PTCARENOTE ---
Bedside walking rounds report received. patient seen on rounds oob in chair on room air and tolerating well. Awake alert and oriented x 3. Sinus tach on monitor with rates in the low 100's to 110's. Flat affect. Pericardial friction rub audible and
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 Plan: bulb chest tubes x 4 (x2 meds and r/l pleural) and dc ahn this am. IS to 1000. See flowrecord for remaining assessments
[2023-07-09] MEDS: ZOFRAN 4 MG IV (07:35)
[2023-07-09] MEDS: LOPRESSOR 12.5 MG PO (07:36)
[2023-07-09] MEDS: CRESTOR 40 MG PO (07:36)
[2023-07-09] MEDS: SENOKOT-S 1 TABLET PO ×2 (07:36→20:47)
[2023-07-09] MEDS: LOW STRENGTH ASPIRIN 81 MG PO (07:36)
[2023-07-09] MEDS: MAGNESIUM OXIDE 500 MG PO ×2 (07:36→20:47)
[2023-07-09] MEDS: BACTROBAN 2% OINTMENT 1 APPLIC NASAL ×2 (07:37→20:49)
[2023-07-09] MEDS: PACERONE 200 MG PO ×3 (07:37→22:00)
--- NOTE | 2023-07-09 07:45 | W.PN.ANS.POP ---
Anesthesia Post Operative
- Anesthesia Post Op Note
Vital Signs Stable-See Nursing Note: Yes
Airway Patent: Yes
Adequate Pain Control: Yes
Change in Mental Status: No
Current Postoperative Nausea & Vomiting: No
Anesthesia Complications: No
General Anesthetic Recall: No
Unplanned Admission: No
Post Op Hydration Adequate: Yes
[2023-07-09 07:51] LABS: Glucose - Point of Care 124 mg/dl (70-99)
[2023-07-09] MEDS: NOVOLOG FLEXPEN SC ×2 (07:51→15:12)
--- NOTE | 2023-07-09 08:09 | PN.DE.MGMTRT ---
Insulin Management
- -
07/09/2023: Diabetes Management Consult
48 year old male admitted 07/[address] surgery. Active tobacco user with T2DM. A1C 10.2%
POD #1 s/p CABG x3 Extubated yesterday, A/O x3, doing well postop, sitting up in chair, c/o mild surgical pain.
Pt remains on CCGP, glucose in range of 92 to 124, requiring 0.4 to 1.2 units of insulin/hr, was taking Ozempic 0.5mg Q Sat and Metformin 1000mg BID.
Discussed current A1C and average blood sugar of 240. Pt states that his A1C was >12% 2-3 months ago and that it has come down.
He has a glucose monitor at home and has been monitoring his blood sugars. He was able to pull up his glucose log in his phone that showed premeal range of 150-202. He has not been monitoring fasting blood sugars due to his sporadic wake up times.
Discussed insulin therapy, specifically long acting insulin, pt is agreeable, states he has taken insulin in the past and is comfortable with injections. Discussed and set monitoring schedule of AC/HS especially now that he is going home on insulin.
Continue current plan of management with [facility]. Will follow in AM and assess for readiness to transition to SQ insulin
Discussed and encouraged smoking cessation. Will provide OP DSME class information tomorrow.
Diabetes History
- -
Type of Diabetes: 2
Pre-Admission Diabetes Regimen
07/08/23 07/09/23
14:32 03:02
Creatinine 0.7 0.6 L
Lab Results
Hemoglobin A1c 10.2 % (4.0-5.6) H 06/27/23 08:52
Insulin Pump Settings
IP Diabetes Regimen
07/08/23 07/08/23 07/08/23
14:31 14:32 16:08
Glucose 110 H
POC Glucose 115 H 150 H
03/11/24 03/11/24 03/11/24
17:06 18:07 19:13
Glucose
POC Glucose 107 H 99 103 H
07/08/23 07/08/23 07/09/23
21:08 23:04 01:06
Glucose
POC Glucose 110 H 94 106 H
07/09/23 07/09/23 07/09/23
02:08 03:02 04:23
Glucose 95
POC Glucose 95 96 100 H
07/09/23 07/09/23
06:17 07:50
Glucose
POC Glucose 92 124 H
Patient Education
[2023-07-09] MEDS: KCL PO (08:48)
[2023-07-09] MEDS: NEURONTIN 100 MG PO ×3 (08:59→22:01)
[2023-07-09] MEDS: TORADOL 15 MG IV (08:59)
[2023-07-09] MEDS: LIDOCAINE 4% PATCH 1 PATCH TOPICAL (09:00)
--- NOTE | 2023-07-09 09:58 | W.PN.CARDCBS ---
Today's Communication / Plan
-
Cont post op care.
Remains sinus
HR and bp stable off pressors.
Impression / Plan
-
.
PCP:
Countersinker: Dr. Stephenson
Impression:
Chest pain
Abnormal stress test
Multivessel CAD on cardiac cath 06/14/23
s/p CABG x 3 (VO to LAD, SVG to diag, SVG to OM) 07/08/2023
Cardiomyopathy
Type 2 diabetes with poor outpt control HbA1c 11.2
Hyperlipidemia
Hypertension
Tobacco abuse
Echo 06/05/2023: EF 45-50%. Stage I DD. No significant valvular disease
Exercise nuclear ST 06/06/2023: 7:46, 90% APMHR, 8.75 METS, 4/10 CP; Fixed defect in basal inferior, mid inferior, apical inferior segments c/w infarct vs soft tissue attenuation. DTS +3.5
Cardiac cath 06/14/2023: LM:NL; LAD:ost 30%, mid 50%, distal LI, iFR in the apical LAD serially measured at or below the ischemic threshold at 0.85, 0.84, 0.86, 0.86, 0.88, 0.89; Diag2 mid 40%; LCX:mid 60% then long 65%; OM2 prox 50-60%; RCA mid 50%,
marginal prox 95%; LVG EF 45-50%
Plan:
Claudy has a history of cardiomyopathy, type 2 diabetes, hyperlipidemia, hypertension, tobacco abuse.� Ejection fraction was 45 to 50% in May 2023.� He underwent catheterization despite fixed defects given symptoms and echo which revealed
three-vessel disease.� He is now status post three-vessel CABG with VO to LAD, vein graft to diagonal, vein graft to OM.�
Cont post op care.
Remains sinus
HR and bp stable off pressors.
Monitor H/H
Discussed with nursing.
HPI:
This is a 48-year-old diabetic gentleman with a recent hemoglobin A1c measuring 11.9%.� His last LDL cholesterol measured 165 mg/dL.� He was referred to our office for evaluation of hypertension and chest pressure.� He has a history of tobacco abuse
less than 1/2 pack/day for many years.� He has noticed some chest and back tightness with exertion as well as dyspnea on exertion.� A recent stress study was notable for the development of chest tightness with exercise.� He exercised on a standard
Kevin protocol for 7: 46 achieving 8.75 METS of physical activity.� Exercise tolerance was below average.� Perfusion was notable for a medium area of mildly decreased uptake that was fixed in the basal inferior to mid inferior segment and apical
inferior segment consistent with infarction with soft tissue attenuation which partially improves with prone imaging.� The LVEF is estimated at 42% on the stress study and 40-45% by echocardiogram where global hypokinesis was noted.
Progress Note - Countersinker
Subjective
Date of Service: July 09, 2023
Pt seen and examined. No complaints. No chest pain or shortness of breath.
Objective
Labs:
07/09/23 03:02
07/09/23 03:02
Labs
Hgb 9.9 g/dL (13.0-18.0) L 07/09/23 03:02
Hct 28.6 % (39.0-52.0) L 07/09/23 03:02
Plt Count 161 10^3/uL (130-400) 07/09/23 03:02
PT 16.7 Sec (11.4-14.6) H 07/08/23 14:32
INR 1.37 07/08/23 14:32
APTT 30.6 Sec (23.4-35.0) 07/08/23 14:32
Sodium 139 mmol/L (135-145) 07/09/23 03:02
Potassium 4.2 mmol/L (3.5-5.1) 07/09/23 03:02
BUN 12 mg/dl (9-20) 07/09/23 03:02
Creatinine 0.6 mg/dL (0.7-1.3) L 07/09/23 03:02
Glucose 95 mg/dl (70-99) 07/09/23 03:02
Vital Signs and I&O:
Vital Signs
Temp Pulse Resp BP Pulse Ox
98 F 102 18 88/63 97
07/09/23 07:34 07/09/23 09:45 07/09/23 07:34 07/09/23 09:00 07/09/23 09:15
Vital Signs
Temp Pulse Resp BP Pulse Ox
98 F 102 18 88/63 97
07/09/23 07:34 07/09/23 09:45 07/09/23 07:34 07/09/23 09:00 07/09/23 09:15
Intake & Output
07/07/23 07/08/23 07/09/23 07/10/23
06:59 06:59 06:59 06:59
Intake Total 1175.8 / 1175.8 532.0 / 532.0
Output Total 2150 / 2150 140 / 140
Balance -974.2 / -974.2 392.0 / 392.0
Physical Exam
Physical Exam
General: No acute distress, AAOX3
Neck: Negative JVD
Heart: Regular, Negative S3 positive S1/S2, Negative S4, No murmur
Lungs: CTA b/l, negative wheezes/rales/rhonchi
Thorax: CT in place
Abd: Positive BS, NT/ND, neg rebound/rigidity/guarding
Ext: Negative cyanosis/clubbing/edema
Neuro: nonfocal
[2023-07-09 10:18] LABS: Glucose - Point of Care 148 mg/dl (70-99)
--- NOTE | 2023-07-09 11:00 | W.PN.INTV ---
Today's Communication / Plan
Recommendations
Continue postoperative care
Follow chest tube output
Follow H&H
Increase activity as able
Analgesia with narcotics, monitor respiratory status closely
Sign off
Assessment
-
Status post coronary artery bypass 3// Dr. Gama
Postoperative mechanical ventilation
Postoperative anemia
Conditions present prior admission:
Type 2 diabetes
Hyperlipidemia
Tobacco abuse
Hypertension
Multivessel coronary artery disease
Echocardiogram 06/05/2023: Showed ejection fraction 45 to 50%. Stage I diastolic dysfunction. No significant valvular abnormalities.
Plan/ recommendations:
Doing well postoperative day 1
Extubated, on low rate supplemental oxygen.
Encourage incentive spirometry
Increase activity per protocol
Continue with analgesia.
Anemia noted-no evidence of acute bleeding
Follow H&H serially
Hemodynamically stable. Off vasopressors.
Chest tube with no excessive drainage-no air leak.
Chest x-ray reviewed: With no pneumothorax or fluid collections.
Chest tube management per primary team.
Advance diet as tolerated.
Glycemic control per protocol, Insulin gtt.
DVT prophylaxis when safe from the surgical perspective.
No additional recommendation from the critical care perspective. Sign off.
Subjective Dataa
Subjective Data
Date of Service:
Date of Service: July 09, 2023
Chief Complaint: Branch Sales Manager Follow Up (Status post coronary artery bypass)
Subjective:
Extubated, patient states her pain is relatively controlled
Denies shortness of breath at rest
Denies significant coughing or phlegm production.
Review of Systems
General: Fever (n)
Cardiopulmonary: Dyspnea (none at rest), Cough (n) and Sputum Production (n)
GI: Abdominal Pain (n), Nausea (n) and Vomiting (n)
Objective Data
Data Reviewed
Vital Signs / I&O / Oxygen:
Vital Signs
Temp Pulse Resp BP Pulse Ox
98 F 101 18 94/65 97
07/09/23 07:34 07/09/23 10:15 07/09/23 07:34 07/09/23 10:00 07/09/23 09:15
Intake and Output
07/08/23 07/09/23 07/10/23
06:59 06:59 06:59
Intake Total 1175.8 / 1175.8 532.0 / 532.0
Output Total 2150 / 2150 140 / 140
Balance -974.2 / -974.2 392.0 / 392.0
SaO2 [CPAP/PSV] 99
SaO2 [SIMV] 100
SaO2 97
Nasal Cannula flow liters per 2
minute
Physical Exam
General: Respiratory Distress (n) and Comfortable
HEENT: Normocephalic
Cardiovascular: S1-S2
Respiratory: Clear, Non-Labored Respirations and Chest Tube (No air leak or excessive drainage)
GI: Soft and Non Distended
Neurology: Awake
Labs/Micro/Reports
Lab Data
07/09/23 03:02
07/09/23 03:02
Laboratory Results
07/08/23 07/08/23
14:32 17:03
PT 16.7 H
INR 1.37
APTT 30.6
pH 7.33 L 7.37
pCO2 42 40
pO2 213 H 171 H
HCO3 22.1 23.1
O2 Delivery Level
Microbiology
07/08/23 07:54 Urine Urine Culture - Final
NO GROWTH
--- NOTE | 2023-07-09 11:30 | PTCARENOTE ---
Patient back to bed with assist of 1: all 4 chest tubes to bulb suction: ahn catheter dc
[2023-07-09 12:11] LABS: Glucose - Point of Care 152 mg/dl (70-99)
[2023-07-09 14:12] LABS: Glucose - Point of Care 135 mg/dl (70-99)
[2023-07-09] MEDS: TYLENOL PO (15:12)
[2023-07-09] MEDS: NSS IV (15:13)
[2023-07-09] MEDS: COLCHICINE 0.299999999999999989 MG PO (15:33)
[2023-07-09] MEDS: PLAVIX 75 MG PO (15:33)
--- NOTE | 2023-07-09 16:00 | PTCARENOTE ---
No acute changes. Vitals stable. OOB in chair and tolerating well. Room air. No urge to void as of yet.
[2023-07-09 17:01] LABS: Glucose - Point of Care 165 mg/dl (70-99)
[2023-07-09 18:05] LABS: Glucose - Point of Care 173 mg/dl (70-99)
[2023-07-09] MEDS: NOVOLOG FLEXPEN 4 UNITS SC (19:03)
[2023-07-09 19:09] LABS: Glucose - Point of Care 156 mg/dl (70-99)
--- NOTE | 2023-07-09 20:00 | PTCARENOTE ---
Received pt from taya RN. Assisted pt out of the chair and repositioned in bed. Pt sinus tach on the monitor. HR 100s. BP 110/70. No edema. Bilateral radial and DP pulses palpable. Pt on RA. POX 97%. CTx4 to bulb & intact - see work-list for
full CT assessment and interventions. Pt voiding pancho colored urine in bathroom. Abdomen soft/nontender. +BS. All surgical sites stable. Glycemic protocol followed. See work list for full nursing assessment and VS. Call chu within reach.
[2023-07-09 20:26] LABS: Glucose - Point of Care 151 mg/dl (70-99)
[2023-07-09] MEDS: LOPRESSOR 25 MG PO (20:48)
[2023-07-09 22:05] LABS: Glucose - Point of Care 113 mg/dl (70-99)
[2023-07-09] MEDS: NOVOLIN R INSULIN INFUSION 100 IV (22:06)
[2023-07-10] VITALS (28 sets, daily range): BP systolic 94–132; BP diastolic 58–80; PULSE 91; O2SAT 98–100; BMI 27.6
--- NOTE | 2023-07-10 00:05 | PTCARENOTE ---
Previous assessment unchanged. Pt SR to sinus tach on monitor. HR 90s-100s. BP 100s-110s/60s-70s. RA. POX 97%. CTx4 to bulb intact. All surgical sites stable. Pt assisted OOB to the bathroom to void and then assisted back into bed. Glycemic protocol
followed. Call chu within reach.
[2023-07-10 00:10] LABS: Glucose - Point of Care 115 mg/dl (70-99)
[2023-07-10] MEDS: TYLENOL 650 MG PO ×7 (00:11→23:43)
[2023-07-10 02:02] LABS: Glucose - Point of Care 132 mg/dl (70-99)
[2023-07-10 03:06] LABS: Glucose - Point of Care 126 mg/dl (70-99)
[2023-07-10 04:38] LABS: Glucose - Point of Care 129 mg/dl (70-99)
--- NOTE | 2023-07-10 04:45 | PTCARENOTE ---
Previous assessment unchanged. Pt remains SR to sinus tach on monitor. HR 90s-100s. BP 110s/60-70s. Pt maintained on RA. POX 96%. Ctx4 to bulb intact. All surgical sites stable. Glycemic protocol followed. Labs drawn and sent. Pt voiding in bathroom
with assist x1. Call chu within reach.
[2023-07-10 05:04] LABS: Hematocrit 28.2 % (39.0-52.0); Hemoglobin 9.7 g/dL (13.0-18.0); Mean Corp Hgb Conc. 34.4 g/dL (33.0-37.0); Mean Corpuscular Volume 87.3 fL (80.0-94.0); Mean Platelet Volume 10.6 fL (7.4-10.4); Platelet Count 152 10^3/uL (130-400); Red Blood Cell Count 3.23 10^6/uL (4.70-6.10); Red Cell Dist. Width 12.5 % (11.5-14.5); White Blood Cell Count 14.2 10^3/uL (4.8-10.8)
[2023-07-10 05:39] LABS: Blood Urea Nitrogen 12 mg/dl (9-20); Calcium 8.6 mg/dl (8.4-10.2); Carbon Dioxide 28 mmol/L (22-30); Chloride 99 mmol/L (98-107); Estimated Creatinine Clearance > 125 ml/min; Glucose 116 mg/dl (70-99); Potassium 3.7 mmol/L (3.5-5.1); Sodium 136 mmol/L (135-145); eGFR > 60.00
--- NOTE | 2023-07-10 05:48 | W.PN.CT ---
Today's Communication / Plan
-
-pod #2
-no issues overnight
-low BP 90s on 07/08- improved
-drips: insulin
-CT output: med A 25/60, med B 35/40, pleur L 30/40, pleur R 15/25 in 12/24 hrs
-weaned off O2 - pOx98% on RA
-Lopressor was increased yesterday to 25 bid for tachycardia
-current meds (ASA, Crestor, Lopressor, Amio, Colchicine for pericarditis). Consider Plavix. Pt was also on Coreg and Lisinopril preop for CM
-appreciate DM input, transitioning from insulin drip to sq
-encourage IS, OOB, ambulate
Assessment / Plan
-
- mv-CAD - s/p CABG x 3 (LENKA to LAD, GSV to D, GSV to OM); EVH RLE on 07/08/[address] Gama, pod #2
- Intraop BRITTNEE: LVEF: 60-65% w/o RWMA and no sig valvular pathology
- T2DM (A1C 10.2)
- HTN/HLD
- Hx Near syncope
- Hx night sweats
- DVT of RUE
- Current smoker since age 7
- Hx R ankle fx
- Acute postop blood loss anemia- no active bleed
- Acute postop atelectasis
- Acute postop hypovolemia with subsequent hypervolemia
- Suspected acute postop pericarditis/+ rub
Discussed patient care with: Nursing and Care Team
Subjective
Procedure
- s/p CABG x 3 (LENKA to LAD, GSV to D, GSV to OM); EVH RLE on 07/08/[address] Gama
-
Date of Service: July 10, 2023
Objective Data
-
PT 16.7 Sec (11.4-14.6) H 07/08/23 14:32
INR 1.37 07/08/23 14:32
APTT 30.6 Sec (23.4-35.0) 07/08/23 14:32
Vital Signs
Vital Signs
Temp Pulse Resp BP Pulse Ox
98.7 F 102 16 108/67 98
07/10/23 00:00 07/10/23 00:00 07/10/23 00:00 07/10/23 00:00 07/10/23 00:00
CT Intake/Output/Weight
07/09/23 07/09/23 07/10/23
06:59 18:59 06:59
Intake Total 342.6 / 1175.8 923.2 / 979.0 55.8 / 979.0
Output Total 1560 / 2150 250 / 325 75 / 325
Balance -1217.4 / -974.2 673.2 / 654.0 -19.2 / 654.0
SaO2: 98
Physical Exam
-
General: Awake and AOx3
Cardiovascular: Regular rate & rhythm, No Murmurs and Rub
Respiratory: Decreased Breath Sounds
Sternum: Stable
Incision: Clean, Dry and Dressing IntactAbdomen: soft, nontender, nondistended, decreased abdomen sounds
Extremities: No Edema (1+ DP b/l)
Data Reviewed
-
Lab Results: Results Reviewed
Medications: Active Meds Reviewed
Chest X-Ray: Report Reviewed and Image Reviewed
ECG: Report Reviewed and Image Reviewed
[2023-07-10] MEDS: ROXICODONE 5 MG PO (05:58)
[2023-07-10 06:03] LABS: Glucose - Point of Care 136 mg/dl (70-99)
[2023-07-10 07:20] LABS: Glucose - Point of Care 131 mg/dl (70-99)
--- NOTE | 2023-07-10 08:00 | PTCARENOTE ---
pt received from previous RN, oriented, OOB in chair. drowsy. ST on the monitor, HR 100-110s. +rub. SBP 110s. palpable pulses, trace LE edema. pt on RA, 99% POX. lungs diminished. IS encouraged. CT x4 to bulb. pt abdomen s/n, denies n/v presently.
+BS, +flatus. voids. poor appetite per pt. sternal Aquacel intact. chest tube dressing c/d/i. R groin ROCÍO. RLE incision ROCÍO. RIJ cordis maintained. PIV. insulin gtt running per protocol. see worklist for VS, I&O, and assessment.
[2023-07-10] MEDS: LOW STRENGTH ASPIRIN 81 MG PO (08:12)
[2023-07-10] MEDS: CRESTOR 40 MG PO (08:13)
[2023-07-10] MEDS: PACERONE 200 MG PO ×3 (08:13→22:11)
[2023-07-10] MEDS: SENOKOT-S 1 TABLET PO ×2 (08:13→20:20)
[2023-07-10] MEDS: PLAVIX 75 MG PO (08:13)
[2023-07-10] MEDS: LIDOCAINE 4% PATCH 1 PATCH TOPICAL (08:13)
[2023-07-10] MEDS: LOPRESSOR 25 MG PO (08:13)
[2023-07-10] MEDS: NEURONTIN 100 MG PO ×3 (08:13→22:10)
[2023-07-10] MEDS: KCL 20 MEQ PO (08:13)
[2023-07-10] MEDS: MAGNESIUM OXIDE 500 MG PO ×2 (08:13→20:20)
[2023-07-10] MEDS: COLCHICINE 0.299999999999999989 MG PO (08:14)
[2023-07-10] MEDS: NOVOLOG FLEXPEN 4 UNITS SC ×2 (08:14→11:56)
[2023-07-10] MEDS: BACTROBAN 2% OINTMENT 1 APPLIC NASAL ×2 (08:15→20:20)
--- NOTE | 2023-07-10 08:25 | W.PN.CARDCBS ---
Today's Communication / Plan
-
Cont post op care.
Check EKG
Impression / Plan
-
.
PCP:
Filling Station Attendant: Dr. Stephenson
Impression:
Chest pain
Abnormal stress test
Multivessel CAD on cardiac cath 06/14/23
s/p CABG x 3 (VO to LAD, SVG to diag, SVG to OM) 07/08/2023
Cardiomyopathy
Type 2 diabetes with poor outpt control HbA1c 11.2
Hyperlipidemia
Hypertension
Tobacco abuse
Echo 06/05/2023: EF 45-50%. Stage I DD. No significant valvular disease
Exercise nuclear ST 06/06/2023: 7:46, 90% APMHR, 8.75 METS, 4/10 CP; Fixed defect in basal inferior, mid inferior, apical inferior segments c/w infarct vs soft tissue attenuation. DTS +3.5
Cardiac cath 06/14/2023: LM:NL; LAD:ost 30%, mid 50%, distal LI, iFR in the apical LAD serially measured at or below the ischemic threshold at 0.85, 0.84, 0.86, 0.86, 0.88, 0.89; Diag2 mid 40%; LCX:mid 60% then long 65%; OM2 prox 50-60%; RCA mid 50%,
marginal prox 95%; LVG EF 45-50%
Plan:
Claudy has a history of cardiomyopathy, type 2 diabetes, hyperlipidemia, hypertension, tobacco abuse.� Ejection fraction was 45 to 50% in May 2023.� He underwent catheterization despite fixed defects given symptoms and echo which revealed
three-vessel disease.� He is now status post three-vessel CABG with VO to LAD, vein graft to diagonal, vein graft to OM.�
Cont post op care.
Remains sinus, slightly more tachycardic this AM. Check EKG.
Bp remains stable.
Monitor H/H
CT coming out today.
Discussed with nursing.
HPI:
This is a 48-year-old diabetic gentleman with a recent hemoglobin A1c measuring 11.9%.� His last LDL cholesterol measured 165 mg/dL.� He was referred to our office for evaluation of hypertension and chest pressure.� He has a history of tobacco abuse
less than 1/2 pack/day for many years.� He has noticed some chest and back tightness with exertion as well as dyspnea on exertion.� A recent stress study was notable for the development of chest tightness with exercise.� He exercised on a standard
Kevin protocol for 7: 46 achieving 8.75 METS of physical activity.� Exercise tolerance was below average.� Perfusion was notable for a medium area of mildly decreased uptake that was fixed in the basal inferior to mid inferior segment and apical
inferior segment consistent with infarction with soft tissue attenuation which partially improves with prone imaging.� The LVEF is estimated at 42% on the stress study and 40-45% by echocardiogram where global hypokinesis was noted.
Progress Note - Filling Station Attendant
Subjective
Date of Service: July 10, 2023
Pt seen and examined. No complaints. No chest pain or shortness of breath.
Objective
Labs:
07/10/23 04:41
07/10/23 04:41
Labs
Hgb 9.7 g/dL (13.0-18.0) L 07/10/23 04:41
Hct 28.2 % (39.0-52.0) L 07/10/23 04:41
Plt Count 152 10^3/uL (130-400) 07/10/23 04:41
PT 16.7 Sec (11.4-14.6) H 07/08/23 14:32
INR 1.37 07/08/23 14:32
APTT 30.6 Sec (23.4-35.0) 07/08/23 14:32
Sodium 136 mmol/L (135-145) 07/10/23 04:41
Potassium 3.7 mmol/L (3.5-5.1) 07/10/23 04:41
BUN 12 mg/dl (9-20) 07/10/23 04:41
Creatinine 0.6 mg/dL (0.7-1.3) L 07/10/23 04:41
Glucose 116 mg/dl (70-99) H 07/10/23 04:41
Vital Signs and I&O:
Vital Signs
Temp Pulse Resp BP Pulse Ox
98.3 F 113 18 117/75 99
07/10/23 08:00 07/10/23 08:15 07/10/23 08:00 07/10/23 08:13 07/10/23 08:00
Vital Signs
Temp Pulse Resp BP Pulse Ox
98.3 F 113 18 117/75 99
07/10/23 08:00 07/10/23 08:15 07/10/23 08:00 07/10/23 08:13 07/10/23 08:00
Intake & Output
07/08/23 07/09/23 07/10/23 07/11/23
06:59 06:59 06:59 06:59
Intake Total 1175.8 / 1175.8 1054.9 / 1054.9
Output Total 2150 / 2150 355 / 355
Balance -974.2 / -974.2 699.9 / 699.9
Physical Exam
Physical Exam
General: No acute distress, AAOX3
Neck: Negative JVD
Heart: Regular, Negative S3 positive S1/S2, Negative S4, friction rub. No murmur
Lungs: CTA b/l, negative wheezes/rales/rhonchi
Abd: Positive BS, NT/ND, neg rebound/rigidity/guarding
Ext: Negative cyanosis/clubbing/edema
Neuro: nonfocal
[2023-07-10 09:07] LABS: Glucose - Point of Care 182 mg/dl (70-99)
--- NOTE | 2023-07-10 10:00 | PTCARENOTE ---
pt placed back to bed, CTs x4 dc'd per orders, dressing c/d/i.
[2023-07-10 10:07] LABS: Glucose - Point of Care 169 mg/dl (70-99)
[2023-07-10] MEDS: GLUCOPHAGE 1000 MG PO ×2 (10:07→17:10)
[2023-07-10] MEDS: FARXIGA 10 MG PO (10:07)
--- NOTE | 2023-07-10 10:16 | PN.DE.MGMTRT ---
Insulin Management
- -
07/10/2023 Diabetes Management Follow up
48 year old male admitted 07/[address] surgery. Active tobacco user with T2DM. A1C 10.2%, CR .6, eGFR >60. Prior to admission was taking Ozempic 0.5mg Q Sat and Metformin 1000mg BID.
POD #2 s/p CABG x3, doing well postop. Patient is awake, alert and oriented, able to discuss diabetes plan.
Pt remains on CCGP, glucose in range of 92 to 169, requiring 4 to 7 units of insulin/hr,
Discussed current A1C and average blood sugar of 240. Pt states that his A1C was >12% 2-3 months ago and that it has come down.
He has a glucose monitor at home and has been monitoring his blood sugars.
Will prepare to transition from glycemic protocol after lunch. Will restart metformin 1000 mg BID, first dose now, and add Farxiga 10 mg Daily, first dose now. Glycemic protocol to be stopped after lunch, low corrective insulin to start with
dinner. Will also start 10 units lantus at HS. If glucose is less than 100 please HOLD lantus. Will also check 3AM glucose.
Diabetes History
- -
Type of Diabetes: 2
Pre-Admission Diabetes Regimen
07/10/23
04:41
Creatinine 0.6 L
Lab Results
Hemoglobin A1c 10.2 % (4.0-5.6) H 06/27/23 08:52
Insulin Pump Settings
IP Diabetes Regimen
07/09/23 07/09/23 07/09/23
10:07 12:00 14:11
Glucose
POC Glucose 148 H 152 H 135 H
07/09/23 07/09/23 07/09/23
16:59 17:54 18:59
Glucose
POC Glucose 165 H 173 H 156 H
07/09/23 07/09/23 07/10/23
20:25 22:04 00:09
Glucose
POC Glucose 151 H 113 H 115 H
07/10/23 07/10/23 07/10/23
02:01 03:05 04:38
Glucose
POC Glucose 132 H 126 H 129 H
07/10/23 07/10/23 07/10/23
04:41 06:02 07:19
Glucose 116 H
POC Glucose 136 H 131 H
07/10/23 07/10/23
09:06 10:06
Glucose
POC Glucose 182 H 169 H
Meal type: Dinner
Meal type: Lunch
Amount consumed: 50%
Amount consumed: 90%
Patient Education
[2023-07-10 11:19] LABS: Glucose - Point of Care 110 mg/dl (70-99)
--- NOTE | 2023-07-10 11:49 | CM ---
Teddy Remy thru patient's Rx plan: [phone].
Estimated cost of BOTH medications are: $70/month or $140/3 months.
I can provide coupon card for monthly savings. Will place in chart. Updated RESTAURANT KITCHEN MANAGER via TT.
[2023-07-10] MEDS: NSS 500 IV (11:56)
[2023-07-10 11:59] LABS: Glucose - Point of Care 83 mg/dl (70-99)
--- NOTE | 2023-07-10 12:30 | PTCARENOTE ---
pt VSS, no changes in assessment. pt ambulates in hallway w/ stand by assist. IS encouraged. insulin gtt running as ordered.
[2023-07-10 12:33] LABS: Glucose - Point of Care 120 mg/dl (70-99)
[2023-07-10 13:12] LABS: Glucose - Point of Care 112 mg/dl (70-99)
[2023-07-10] MEDS: LOPRESSOR 12.5 MG PO (13:15)
[2023-07-10 14:05] LABS: Glucose - Point of Care 122 mg/dl (70-99)
[2023-07-10 15:07] LABS: Glucose - Point of Care 88 mg/dl (70-99)
--- NOTE | 2023-07-10 15:46 | CM ---
CM following for DC planning needs.
Met w/ patient at bedside. Pt. reports that he is feeling well.
Anticipated DC plan remains for home w/ CT Transitional Care RN.
CM to cont. to follow.
[2023-07-10] MEDS: TORADOL 15 MG IV (16:15)
[2023-07-10] MEDS: ZOFRAN 4 MG IV (16:25)
--- NOTE | 2023-07-10 16:28 | PTCARENOTE ---
pt VSS, pt c/o DE LEON, received scheduled Tylenol. pt c/o nausea, received PRN Zofran.
[2023-07-10 17:09] LABS: Glucose - Point of Care 109 mg/dl (70-99)
[2023-07-10 18:39] LABS: Glucose - Point of Care 149 mg/dl (70-99)
[2023-07-10] MEDS: LOPRESSOR 50 MG PO (20:20)
--- NOTE | 2023-07-10 20:30 | PTCARENOTE ---
Pt received from taya RN. Walking rounds completed. Walked with pt around the unit x2. Pt denies SOB or chest pain. Pt AAOx3. JALLOH. Following commands appropriately. SR to sinus tach on monitor. +rub. HR 90-100s. BP 115/72. Trace LE edema.
Bilateral radial and DP pulses palpable. Pt on RA. POX 99%. Lungs diminished. Deep breathing and IS encouraged. Abdomen soft/nontender. +BS. Voiding in bathroom w/o difficulty. CT dressing CDI. All surgical sites stable. Right IJ cordis CDI w/ KVO
infusing. See work-list for full nursing assessment, VS, and interventions. Call chu within reach.
[2023-07-10 22:10] LABS: Glucose - Point of Care 113 mg/dl (70-99)
[2023-07-10] MEDS: LANTUS 0.100000000000000006 UNITS SC (22:10)
[2023-07-11] VITALS (17 sets, daily range): BP systolic 93–132; BP diastolic 62–82; PULSE 89; O2SAT 97–100; BMI 27.5
--- NOTE | 2023-07-11 | PTCARENOTE ---
Previous assessment unchanged. Pt SR on monitor. HR 80s-90s. BP stable. RA. POX 99%. All surgical sites stable. Pt assisted OOB to void and repositioned back into bed. Call chu within reach.
[2023-07-11 04:24] LABS: Glucose - Point of Care 94 mg/dl (70-99)
[2023-07-11] MEDS: TYLENOL 650 MG PO (04:35)
--- NOTE | 2023-07-11 04:35 | PTCARENOTE ---
Previous assessment unchanged. Pt SR on monitor. HR 90s. BP stable. RA. POX 99%. EKG obtained. Labs drawn and sent. Blood sugar obtained. Pt assisted OOB to void in bathroom w/ stand by assist and repositioned back into bed. VS and interventions as
documented in work-list. Call chu within reach.
[2023-07-11 04:45] LABS: Hematocrit 26.6 % (39.0-52.0); Hemoglobin 9.3 g/dL (13.0-18.0); Mean Corpuscular Hgb 30.2 pg (27.0-31.0); Mean Corpuscular Volume 86.4 fL (80.0-94.0); Mean Platelet Volume 10.4 fL (7.4-10.4); Platelet Count 152 10^3/uL (130-400); Red Blood Cell Count 3.08 10^6/uL (4.70-6.10); Red Cell Dist. Width 12.9 % (11.5-14.5); White Blood Cell Count 12.1 10^3/uL (4.8-10.8)
[2023-07-11 05:08] LABS: Blood Urea Nitrogen 13 mg/dl (9-20); Calcium 8.4 mg/dl (8.4-10.2); Carbon Dioxide 26 mmol/L (22-30); Chloride 103 mmol/L (98-107); Estimated Creatinine Clearance > 125 ml/min; Glucose 81 mg/dl (70-99); Potassium 4.3 mmol/L (3.5-5.1); Sodium 134 mmol/L (135-145); eGFR > 60.00
--- NOTE | 2023-07-11 06:20 | W.PN.CT ---
Today's Communication / Plan
-
-pod #3
-doing well, no issues overnight, wants to go home
-continue current meds
-follow CXR
-encourage IS, ambulate
-likely d/c soon
Assessment / Plan
-
- mv-CAD - s/p CABG x 3 (LENKA to LAD, GSV to D, GSV to OM); EVH RLE on 07/08/[address] Gama, pod #3
- Intraop BRITTNEE: LVEF: 60-65% w/o RWMA and no sig valvular pathology
- T2DM (A1C 10.2)
- HTN/HLD
- Hx Near syncope
- Hx night sweats
- DVT of RUE
- Current smoker since age 7
- Hx R ankle fx
- Acute postop blood loss anemia- no active bleed
- Acute postop atelectasis
- Acute postop hypovolemia with subsequent hypervolemia
- Suspected acute postop pericarditis/+ rub
Discussed patient care with: Nursing and Care Team
Subjective
Procedure
- s/p CABG x 3 (LENKA to LAD, GSV to D, GSV to OM); EVH RLE on 07/08/[address] Gama
-
Date of Service: July 11, 2023
Objective Data
-
Lab Results
07/11/23 04:28
07/11/23 04:28
PT 16.7 Sec (11.4-14.6) H 07/08/23 14:32
INR 1.37 07/08/23 14:32
APTT 30.6 Sec (23.4-35.0) 07/08/23 14:32
Vital Signs
Vital Signs
Temp Pulse Resp BP Pulse Ox
98.3 F 90 16 132/82 99
07/11/23 04:30 07/11/23 04:30 07/11/23 04:30 07/11/23 04:30 07/11/23 04:30
CT Intake/Output/Weight
07/10/23 07/10/23 07/11/23
06:59 18:59 06:59
Intake Total 131.7 / 1054.9 133.5 / 223.5 90 / 223.5
Output Total 105 / 355
Balance 26.7 / 699.9 133.5 / 223.5 90 / 223.5
SaO2: 99
Physical Exam
-
General: Awake and AOx3
Cardiovascular: Regular rate & rhythm, No Murmurs and Rub
Respiratory: Decreased Breath Sounds
Sternum: Stable
Incision: Clean, Dry and Dressing Intact
Extremities: No Edema
Data Reviewed
-
Lab Results: Results Reviewed
Medications: Active Meds Reviewed
Chest X-Ray: Report Reviewed and Image Reviewed
ECG: Report Reviewed and Image Reviewed
[2023-07-11 07:54] LABS: Glucose - Point of Care 102 mg/dl (70-99)
[2023-07-11] MEDS: COLCHICINE 0.299999999999999989 MG PO (07:54)
[2023-07-11] MEDS: MAGNESIUM OXIDE 500 MG PO (07:55)
[2023-07-11] MEDS: SENOKOT-S 1 TABLET PO (07:56)
[2023-07-11] MEDS: LOW STRENGTH ASPIRIN 81 MG PO (07:57)
[2023-07-11] MEDS: FARXIGA 10 MG PO (07:57)
[2023-07-11] MEDS: NEURONTIN 100 MG PO ×2 (07:57→17:17)
[2023-07-11] MEDS: CRESTOR 40 MG PO (08:00)
[2023-07-11] MEDS: PLAVIX 75 MG PO (08:00)
[2023-07-11] MEDS: GLUCOPHAGE 1000 MG PO ×2 (08:00→17:17)
[2023-07-11] MEDS: PACERONE 200 MG PO ×2 (08:01→17:17)
[2023-07-11] MEDS: LOPRESSOR 50 MG PO (08:03)
--- NOTE | 2023-07-11 09:00 | PTCARENOTE ---
Assumed care of patient at 0730. Patient found OOB in chair at time of assessment. Patient is AOx4, follows commands appropriately, moves all extremities. Standby assist only. Lung sounds are diminished in the bases, patient is on RA saO2 96%. Heart
sounds have a regular rate and rhythm, patient is NSR on the monitor, palpable normal pulses, no observable edema. Active BS throughout all four quadrants soft nontender abdomen patient has not had post op BM at this time. There is a sternal
incision with aquacell dressing CDI, a R groin puncture approx with surg adhesive SUPERINTENDENT PLANT, RLE incision approx with surg adhesive SUPERINTENDENT PLANT. There is a R IJ cordis receiving KVO and R FA PIV for intermittent infusion. Received orders to remove IJ cordis which
was removed at approx 0830. Assisted patient with ambulation around unit. VSS. Patient has no complaints.
--- NOTE | 2023-07-11 09:01 | PN.DE.MGMTRT ---
Insulin Management
- -
07/11/2023 Diabetes Management Follow up
48 year old male admitted 07/[address] surgery. Active tobacco user with T2DM. A1C 10.2%, CR .6, eGFR >60. Prior to admission was taking Ozempic 0.5mg Q Sat and Metformin 1000mg BID.
POD #3 s/p CABG x3, doing well postop. Patient is awake, alert and oriented, able to discuss diabetes plan.
Patient received Farxiga 10 mg in am and 1000 mg metformin in AM and with dinner. Transitioned from glycemic protocol last evening after dinner, HS glucose 113, received 10 units lantus @ hs, fasting this AM 81.
Spoke with patient, he will continue metformin 1000 mg BID, farxiga 10 mg daily and lantus 10 units @ HS. He will resume his Ozempic on Saturday. Patient to test glucose before each meal and 2 hours after each meal. If glucose is above 180
patient understands to contact primary care doctor. He states he has adequate supplies for glucose testing.
Patient for possible discharge today. RX for lantus, Farxiga and pen needles in ambulatory orders.
Diabetes History
- -
Type of Diabetes: 2
Pre-Admission Diabetes Regimen
07/11/23
04:28
Creatinine 0.6 L
Lab Results
Hemoglobin A1c 10.2 % (4.0-5.6) H 06/27/23 08:52
Insulin Pump Settings
IP Diabetes Regimen
07/10/23 07/10/23 07/10/23
05:29 09:06 10:06
Glucose
POC Glucose 120 H 182 H 169 H
07/10/23 07/10/23 07/10/23
11:17 11:58 13:11
Glucose
POC Glucose 110 H 83 112 H
07/10/23 07/10/23 07/10/23
14:03 15:04 17:08
Glucose
POC Glucose 122 H 88 109 H
07/10/23 07/10/23 07/11/23
18:38 22:09 04:23
Glucose
POC Glucose 149 H 113 H 94
07/11/23 07/11/23
04:28 07:51
Glucose 81
POC Glucose 102 H
Meal type: Dinner
Meal type: Breakfast
Amount consumed: 75%
Amount consumed: 90%
Patient Education
[2023-07-11] MEDS: KCL PO (09:17)
[2023-07-11] MEDS: BACTROBAN 2% OINTMENT 1 APPLIC NASAL (09:17)
[2023-07-11] MEDS: LIDOCAINE 4% PATCH 1 PATCH TOPICAL (09:17)
--- NOTE | 2023-07-11 09:29 | W.PN.CARDCBS ---
Addendum entered and electronically signed by Jose Luis Dalal MD 07/11/23 11:21:
I saw and examined the patient.
The Drying Can Worker's note was reviewed and I agree with the note.
Comment: Briefly, 48-year-old man past medical history multivessel CAD who underwent CABG x 3 earlier this week
He is resting comfortably in the CVICU out of bed to chair, not requiring supplemental oxygen, weaned off pressor and inotrope support, chest tubes and Cordis have been removed
Telemetry reviewed showing sinus rhythm/ sinus tachycardia
Concern for pericarditis based on ECG changes and he has been started on colchicine
Otherwise stable cardiac status
We will arrange follow-up with primary cold roll inspector Dr. Stephenson
Original Note:
Today's Communication / Plan
-
doing well
follow HRs. continue lopressor
for DC soon
Impression / Plan
-
.
PCP:
Cement Truck Loader: Dr. Stephenson
Impression:
Chest pain
Abnormal stress test
Multivessel CAD on cardiac cath 06/14/23
s/p CABG x 3 (VO to LAD, SVG to diag, SVG to OM) 07/08/2023
Cardiomyopathy
Type 2 diabetes with poor outpt control HbA1c 11.2
Hyperlipidemia
Hypertension
Tobacco abuse
Echo 06/05/2023: EF 45-50%. Stage I DD. No significant valvular disease
Exercise nuclear ST 06/06/2023: 7:46, 90% APMHR, 8.75 METS, 4/10 CP; Fixed defect in basal inferior, mid inferior, apical inferior segments c/w infarct vs soft tissue attenuation. DTS +3.5
Cardiac cath 06/14/2023: LM:NL; LAD:ost 30%, mid 50%, distal LI, iFR in the apical LAD serially measured at or below the ischemic threshold at 0.85, 0.84, 0.86, 0.86, 0.88, 0.89; Diag2 mid 40%; LCX:mid 60% then long 65%; OM2 prox 50-60%; RCA mid 50%,
marginal prox 95%; LVG EF 45-50%
Plan:
-s/p CABG x 3 (VO to LAD, SVG to diag, SVG to OM) 07/08/2023
-doing well. for possible DC later today
-remains in SR, on amio and lopressor. BB dose increased to 50mg BID yesterday for tachycardia and HRs appear to be improving on review of tele
-EKG 07/09 with evidence of likely pericarditis vs early repol. on colchicine 0.3mg daily
-hgb 9.3. continue asa, plavix
-continue crestor
-prior to admission was on coreg 3.125mg BID and lisinopril 2.5mg daily
-OOB/IS
-cardiac rehab
-OP cardiac follow up arranged
-d/w nursing
HPI:
This is a 48-year-old diabetic gentleman with a recent hemoglobin A1c measuring 11.9%.� His last LDL cholesterol measured 165 mg/dL.� He was referred to our office for evaluation of hypertension and chest pressure.� He has a history of tobacco abuse
less than 1/2 pack/day for many years.� He has noticed some chest and back tightness with exertion as well as dyspnea on exertion.� A recent stress study was notable for the development of chest tightness with exercise.� He exercised on a standard
Kevin protocol for 7: 46 achieving 8.75 METS of physical activity.� Exercise tolerance was below average.� Perfusion was notable for a medium area of mildly decreased uptake that was fixed in the basal inferior to mid inferior segment and apical
inferior segment consistent with infarction with soft tissue attenuation which partially improves with prone imaging.� The LVEF is estimated at 42% on the stress study and 40-45% by echocardiogram where global hypokinesis was noted.
Progress Note - Cement Truck Loader
Subjective
Date of Service: July 11, 2023
no issues overnight. patient reports he is for possible DC today
Objective
Labs:
07/11/23 04:28
07/11/23 04:28
Labs
Hgb 9.3 g/dL (13.0-18.0) L 07/11/23 04:28
Hct 26.6 % (39.0-52.0) L 07/11/23 04:28
Plt Count 152 10^3/uL (130-400) 07/11/23 04:28
PT 16.7 Sec (11.4-14.6) H 07/08/23 14:32
INR 1.37 07/08/23 14:32
APTT 30.6 Sec (23.4-35.0) 07/08/23 14:32
Sodium 134 mmol/L (135-145) L 07/11/23 04:28
Potassium 4.3 mmol/L (3.5-5.1) 07/11/23 04:28
BUN 13 mg/dl (9-20) 07/11/23 04:28
Creatinine 0.6 mg/dL (0.7-1.3) L 07/11/23 04:28
Glucose 81 mg/dl (70-99) 07/11/23 04:28
Vital Signs and I&O:
Vital Signs
Temp Pulse Resp BP Pulse Ox
98.3 F 110 16 120/74 99
07/11/23 04:30 07/11/23 08:03 07/11/23 04:30 07/11/23 08:03 07/11/23 06:41
Vital Signs
Temp Pulse Resp BP Pulse Ox
98.3 F 110 16 120/74 99
07/11/23 04:30 07/11/23 08:03 07/11/23 04:30 07/11/23 08:03 07/11/23 06:41
Intake & Output
07/09/23 07/10/23 07/11/23 07/12/23
07:59 07:59 07:59 07:59
Intake Total 1446.6 / 1446.6 784.1 / 798.1 223.5 / 223.5
Output Total 2250 / 2250 255 / 255
Balance -803.4 / -803.4 529.1 / 543.1 223.5 / 223.5
Physical Exam
Physical Exam
GEN: No distress, awake, alert, oriented x3
HEENT: supple, anicteric, mmm, eomi
LUNGS: CTA B/L, no wheezes/rales
CV: Reg, S1/S2, no murmur
ABD: soft, BS+, NT/ND
EXT: No cyanosis, clubbing, edema
NEURO: Gross non-focal
SKIN: Warm, pink, dry. No rash. Sternotomy dressing c/d/i
--- NOTE | 2023-07-11 09:50 | W.DCSUMMARY ---
Discharge Summary
Discharge Data
Date of Admission: 07/08/23
Date of Discharge: 07/11/23
-
Pending Results: No
Hospital Course
Primary care physician: Denise Andrews
Outpatient furniture sprayer: Tanvir Stephenson
Inpatient consultants: [facility]
Procedures:
1. Coronary artery bypass grafting
Primary Diagnosis:
1. Coronary artery disease
Secondary Diagnoses:
1. Type 2 diabetes (A1c 10.2)
2. Hypertension
3. Hyperlipidemia
4. History of DVT right upper extremity
5. Current tobacco abuse
6.�Acute surgical blood loss anemia-expected
7. Acute postop hypovolemia with subsequent hypervolemia
8. Acute postop pericarditis
HPI: Claudy Cormier is a 48-year-old male electively admitted on 07/08/2023 for CABG
Hospital course: Patient underwent CABG x 3 with VO to LAD, SVG to OM, SVG to diagonal [address] Juancarl[address] Gama. Patient received no intraoperative blood products and had no temporary pacing wires. Patient was returned to CVICU on Levophed,
insulin and Precedex. Levophed was quickly weaned off and patient was extubated at 1715. Aspirin postoperatively was administered. Postoperative day #1 patient was initiated on Plavix with aspirin combo. Amiodarone was used for A-fib prophylaxis,
chest tubes were pulled, and colchicine was started for a pericardial rub and pericarditis pattern on twelve-lead EKG. On postoperative day #2, chest tubes were discontinued and patient was transitioned off insulin onto metformin, Farxiga, and
Lantus per endocrine GENE's. Patient ambulated in koe[place] and felt well patient remained afebrile with hemoglobin of 9.3, creatinine 1.6, BP 105/74, and pulse oximetry of 99% on room air on day of discharge. RIj cordis was removed. Patient was
instructed on importance of maintaining normal range blood sugars and on lifelong smoking cessation to maintain graft patency. Sternotomy incision clean, dry, and intact after Aquacell dressing removed. Stable for discharge home.
Home medication changes:
see below
Discharge Plan
-
Patient Disposition: Home (Routine Discharge)
Discharge Diagnosis/Procedures: coronary artery bypass grafting x3
Condition: Good
Diet: Low Fat, Low Cholesterol and Diabetic, Carb Controlled
Activity: No strenuous activity
Driving Restrictions: Not until seen by your Dr
Bathing Restrictions: OK to Shower
Other Services: Cardiac Rehab
Activity Restrictions/Additional Instructions:
ACTIVITY:
-No strenuous activity: no heavy lifting, pushing, pulling anything over 15 pounds for one month
-continue to use stairs as tolerated
DRIVING RESTRICTIONS:
-No driving for one month or until approved by your surgeon
WOUND CARE:
-Shower daily. Use soap & water.
-No lotions, creams or powders on incision area.
DIET:
-continue a low fat/low cholesterol diet.
-IF you are diabetic, continue carb controlled diet.
CARDIAC REHAB:
-Please make appointment to start in 5-6 weeks with your local hospital program. (See Cardiac Rehabilitation Discharge Booklet).
Please call to make appointments for Phase II Cardiac Rehab:
1.) [facility]: [phone] [facility] (18 min away)
2.) [facility] [phone] (20 min away)
SPECIALTY INSTRUCTIONS:
-Weigh yourself daily. Call your physician for any weight gain/loss of 3 lbs overnight or 5 lbs in one week.
-REPORT any clicking noise or uneven appearance of your sternum to your surgeon immediately.
-If you smoke, you are instructed to quit. The [place] smoking hotline phone number is [phone]
Referrals:
CT Transitional Care Nurse [Outside] (The Cardiothoracic Transitional Care Nurse will call you to set up a visit in 1-2 days.)
Denise Andrews DO [Family Provider] -
Linda Moore PA-C [Specified Professional Personl] - 08/21/23 10:00 am (your appts with Allie Shaikh NP/cardiology on 07/16 and your appt with Dr Stephenson on 08/19 @ 920 were both cancelled. )
Juancarlos Gama MD [Active] - 08/06/23 2:00 pm
Additional Discharge Medication Instructions: Coreg stopped as transitioned to Metoprolol
Aspirin/Plavix, Metoprolol, rosuvastatin for coronary disease after CABG
One time prescriptions for gabapentin and oxycodone for post op pain
Ozempic to be resumed on Saturday
Prescriptions:
New
clopidogrel 75 mg Tablet
75 mg PO DAILY Qty: 30 1RF
metoprolol tartrate [Lopressor] 50 mg tablet
50 mg PO BID Qty: 60 1RF
acetaminophen 325 mg Tablet
650 mg PO Q6HPRN PRN (Reason: mild pain,headache,temp >101F ) Qty: 0 0RF
sennosides-docusate sodium [Stool Softener-Stimulant Laxat] 8.6-50 mg Tablet
1 tab PO Q12 PRN (Reason: Constipation) Qty: 0 0RF
colchicine 0.6 mg Tablet
0.3 mg PO DAILY Qty: 14 0RF
insulin glargine [Lantus Solostar U-100 Insulin] 100 unit/mL (3 mL) Insulin Pen
10 unit SC HS Qty: 5 0RF
Rx Instructions:
E11.65
(DME) pen needle, diabetic [BD Ultra-Fine Cathleen Pen Needle] 32 gauge x ' Needle
Qty: 100 0RF
Rx Instructions:
For use with Lantus SoloStar prefilled pen daily As Directed E11.65
dapagliflozin propanediol [Farxiga] 10 mg Tablet
10 mg PO DAILY Qty: 30 0RF
gabapentin 100 mg Capsule
100 mg PO TID Qty: 30 0RF
oxycodone 5 mg Tablet
5 mg PO Q6HPRN PRN (Reason: mild pain) Qty: 20 0RF
Continued
multivitamin Tablet
1 tab PO DAILY
rosuvastatin 40 mg Tablet
40 mg PO DAILY
lisinopril 2.5 mg tablet
2.5 mg PO DAILY Qty: 30 5RF
metformin 1,000 mg Tablet
1,000 mg PO BID
aspirin 81 mg tablet,chewable
81 mg PO DAILY Qty: 1 0RF
Ozempic 0.25 mg or 0.5 mg (2 mg/3 mL) Pen Injector
0.5 mg SC SA Qty: 0 0RF
Rx Instructions:
for 4 weeks. Begin 07/12 (Saturday)
Discontinued
carvedilol 3.125 mg tablet
3.125 mg PO BID Qty: 60 10RF
Discharge Orders:
Discharge Patient (As Directed); Ordered 07/11/23
Ordered By: Ivet Ramesh
Care Plan Goals
Care Plan Goals:
Problem: Readiness for enhanced knowledge related to diagnosis and treatment plan
Goal: Understand your diagnosis and treatment plan needs, including medications if applicable.
Instructions: Know your diagnosis, underlying causes and treatment plan options, including medications if applicable. Consult with your health care team to learn about your diagnosis and treatment plan, including medications if applicable.
[2023-07-11 12:23] LABS: Glucose - Point of Care 95 mg/dl (70-99)
--- NOTE | 2023-07-11 12:29 | CM ---
Addendum entered by EDWIN Virgen 07/11/23 15:18:
Pt. for DC to home. Order noted.
Met w/ patient at bedside. He feels well and is prepared for DC.
Reviewed post op appointments. Reviewed visit from CT Transitional Care RN.
Coupons for Farxiga placed in chart.
DC plan is for home w/ CT Transitional Care RN.
Original Note:
CM following for DC planning needs.
Patient POD#3 from CABG.
Reviewed DC plan. Anticipated plan remains for home w/ CT Transitional Care RN.
CM will cont. to follow.
--- NOTE | 2023-07-11 12:30 | PTCARENOTE ---
Assumed care of patient at 0730. Patient found OOB in chair at time of assessment. Patient is AOx4, follows commands appropriately, moves all extremities. Standby assist only. Lung sounds are diminished in the bases, patient is on RA saO2 96%. Heart
sounds have a regular rate and rhythm, patient is NSR on the monitor, palpable normal pulses, no observable edema. Active BS throughout all four quadrants soft nontender abdomen patient has not had post op BM at this time. There is a sternal
incision with aquacell dressing CDI, a R groin puncture approx with surg adhesive CROCHET MACHINE OPERATOR, RLE incision approx with surg adhesive CROCHET MACHINE OPERATOR. There is a R IJ cordis receiving KVO and R FA PIV for intermittent infusion. Received orders to remove IJ cordis which
was removed at approx 0830. Assisted patient with ambulation around unit. VSS. Patient has no complaints.
--- NOTE | 2023-07-11 12:56 | PTCARENOTE ---
Assumed care of patient at 0730. Patient found OOB in chair at time of assessment. Patient is AOx4, follows commands appropriately, moves all extremities. Standby assist only. Lung sounds are diminished in the bases, patient is on RA saO2 96%. Heart
sounds have a regular rate and rhythm, patient is NSR on the monitor, palpable normal pulses, no observable edema. Active BS throughout all four quadrants soft nontender abdomen patient has not had post op BM at this time. There is a sternal
incision with aquacell dressing CDI, a R groin puncture approx with surg adhesive CATTLE TRADER, RLE incision approx with surg adhesive CATTLE TRADER. There is a R IJ cordis receiving KVO and R FA PIV for intermittent infusion. Received orders to remove IJ cordis which
was removed at approx 0830. Assisted patient with ambulation around unit. VSS. Patient has no complaints.
--- NOTE | 2023-07-11 12:58 | PTCARENOTE ---
Patient reassessed. VSS. Patient successfully ambulated stairs with PT. 2 view CXR performed. Patient is stable.
[2023-07-11] MEDS: NSS IV (13:40)
--- NOTE | 2023-07-11 17:04 | PTCARENOTE ---
Patient is stable. Discharge orders received awaiting patient's mother to assist with transport. Aquacell dressing removed. Discharge teaching provided. PIV will be removed prior to discharge.
== END 2023-07-11 18:45 | disposition home or self-care (01) | DRG 236 ==
LOC: CVICU 05:03
PROVIDERS: Clinical Nurse Specialist Acute Care; Physician Assistant Medical; ADMITTING PHYSICIAN Thoracic Surgery (Cardiothoracic Vascular Surgery); CONSULT PHYSICIAN Internal Medicine Critical Care Medicine; FAMILY PHYSICIAN Internal Medicine
PROC: 021109W Bypass Coronary Artery, Two Arteries from Aorta with Autologous Venous Tissue, Open Approach (ICD-10-PCS; 2023-07-08)
PROC: 06BP0ZZ Excision of Right Saphenous Vein, Open Approach (ICD-10-PCS; 2023-07-08)
PROC: B24BZZ4 Ultrasonography of Heart with Aorta, Transesophageal (ICD-10-PCS; 2023-07-08)
PROC: 5A1221Z Performance of Cardiac Output, Continuous (ICD-10-PCS; 2023-07-08)
PROC: 02100ZC Bypass Coronary Artery, One Artery from Thoracic Artery, Open Approach (ICD-10-PCS; 2023-07-08)
DX: I25.10 Atherosclerotic heart disease of native coronary artery without angina pectoris (principal); I31.9 Disease of pericardium, unspecified; D62 Acute posthemorrhagic anemia; E11.65 Type 2 diabetes mellitus with hyperglycemia; I10 Essential (primary) hypertension; E78.5 Hyperlipidemia, unspecified; F17.200 Nicotine dependence, unspecified, uncomplicated; Z86.718 Personal history of other venous thrombosis and embolism; Z79.4 Long term (current) use of insulin
CPT/HCPCS: 94727; 94729; 36415; 71045; 71046; 80048; 80053; 81003; 81015; 82248; 82330; 82565; 82805; 82810; 82947; 82962; 83036; 83735; 84132; 84302; 84520; 85014; 85018; 85025; 85027; 85049; 85610; 85730; 86850; 86900; 86901; 86920; 87070; 87086; 93005; 93312; 93320; 93325; 93880; 94002; 94010; 99406; C1713; P9045

== ENCOUNTER 2023-07-16 18:44 | Emergency (ER) | payer BC, SELFPAY ==
[2023-07-16 18:52] VITALS: BP 98/67
[2023-07-16 18:52] LABS: Glucose - Point of Care 132 mg/dl (70-99)
[2023-07-16 19:09] VITALS: BMI 25.8
[2023-07-16 19:12] VITALS: BP 123/73
[2023-07-16 19:21] LABS: % Basophils 0.4 % (0-2); % Eosinophils 2.4 % (0-6); % Immature Granulocytes 0.6 % (0-0.5); % Lymphocytes 19.5 % (20.5-51.1); % Monocytes 9.1 % (1.7-9.3); Absolute Basophils 0.1 10^3/uL (0-0.2); Absolute Eosinophils 0.3 10^3/uL (0-0.7); Absolute Immature Granulocytes 0.1 10^3/uL (0-0.05); Absolute Lymphocytes 2.6 10^3/uL (1.2-3.4); Absolute Monocytes 1.2 10^3/uL (0.1-0.6); Hematocrit 34.4 % (39.0-52.0); Hemoglobin 11.5 g/dL (13.0-18.0); Mean Corp Hgb Conc. 33.4 g/dL (33.0-37.0); Mean Corpuscular Hgb 29.6 pg (27.0-31.0); Mean Corpuscular Volume 88.7 fL (80.0-94.0); Mean Platelet Volume 8.9 fL (7.4-10.4); Nucleated Red Blood Cells % 0 % (-); Platelet Count 421 10^3/uL (130-400); Red Blood Cell Count 3.88 10^6/uL (4.70-6.10); Red Cell Dist. Width 13.6 % (11.5-14.5); White Blood Cell Count 13.3 10^3/uL (4.8-10.8)
--- NOTE | 2023-07-16 19:30 | ED.GENMED ---
History of Present Illness
<JULIANA Peck - Last Filed: 07/16/23 21:20>
General
Chief Complaint: Dizziness
Source: patient
Exam Limitations: none
Time Seen by Provider: 07/16/23 19:10
Travel History
Have you had any contact with someone who has COVID-19?: No
Do you have any symptoms of coronavirus? Fever > 100 degrees, chills, cough, shortness of breath, sore throat, loss of taste or smell, muscle aches, or headache?: No
History of Present Illness
History of Present Illness:
This is a 48 year old male that comes in with c/o questionable CVA. States that he had a CABG done here 8 days ago. States that the VN has been to his house twice and today was the second time. States that he has had nausea, vomiting and
lightheadedness since he has been home. States that today the VN felt that he may have had a stroke. States that he has had a low grade headache for 3 days across his forehead and he feels foggy. States that he is dizzy when he gets up has chest
pain today not just the surgical pain and feels SOB. States that he did have his first BM today. Denies any fever, chills, abd pain, diarrhea, urinary burning.
Past History
<JULIANA Peck - Last Filed: 07/16/23 21:20>
Past History
ED Past Medical History: CAD, HTN, Hypercholesterolemia, IDDM, Psychiatric (Anxiety, Depression) and Other (Migraines, Sleep apnea, DVT)
ED Past Surgical History: Cardiac (CABG June 2023) and Orthopedic (Right ankle fracture wit hardware)
Social History
Tobacco: Former smoker
Alcohol: Occasional
Personal:
Living: alone
Review of Systems
<JULIANA Peck - Last Filed: 07/16/23 21:20>
Review of Systems
All Other Systems: ROS reviewed and negative except as documented in HPI and ROS
Constitutional: Reports no symptoms; Denies fever or chills
EENT: Reports no symptoms
Respiratory: Reports trouble breathing; Denies cough
Cardiac: Reports chest pain
ABD/GI: Reports nausea and vomiting; Denies abdominal pain or diarrhea
: Reports no symptoms; Denies dysuria, frequency or urgency
Musculoskeletal: Reports no symptoms
Skin: Reports no symptoms
Neurological: Reports dizzy (When he gets up fast) and headache
Psychiatric: Reports no symptoms
Phy Exam
<JULIANA Peck - Last Filed: 07/16/23 21:20>
General Physical Exam
General Presentation: no apparent distress
General age: appears stated age
General Skin: warm and dry
General Habitus: normal
General Mental: alert
General Hydration: appears well hydrated
ENT Exam
ENT Exam: TM's normal, pharynx normal and neck supple
Eye Exam
Eye Exam: PERRL and EOMI
Cardiovascular Exam
Cardiovascular Exam: regular rate/rhythm, no edema and normal peripheral pulses
Pulmonary Exam
Pulmonary Exam: lungs clear, no respiratory distress, no rales, chest non tender, no crackles, no rhonchi, no wheezing and no cough
Gastrointestinal Exam
Gastrointestinal Exam: normal bowel sounds, non tender, soft, no organomegaly, no pulsatile mass and non distended
NIH Stroke Score
Level of Consciousness: 0 - Alert
LOC questions: 0-Answers both correctly
LOC Commands: 0-Performs both correctly
Best Gaze: 0-Normal
Visual St[place]ard: 0=Normal, no visual loss
Facial palsy: 1=Minor paralysis (Left mouth droop, Resolves with true smile)
Motor - Right Arm: 0=No drift 10 seconds
Motor - Left Arm: 0=No drift 10 seconds
Motor - Right Le-No drift 5 seconds
Motor - Left Le-No drift 5 seconds
Limb Ataxia: 0-Absent
Sensation: 0-Normal
Best Language: 0-No aphasia
Dysarthria: 0-Normal
Extinction and Inattention: 0-No abnormality
Total Score:: 1
Musculoskeletal Exam
Musculoskeletal Exam: full ROM and no edema
Skin Exam
Skin Exam: normal color, warm/dry, no rash, no petechia and other (sternal incision clean and dry. Upper abd small incision suture removed. Right lower leg Suture noted. Contusion on the left forearm. )
Psychiatric Exam
Psychiatric Exam: normal mood/affect
<Ludin Teresa DO - Last Filed: 07/16/23 19:42>
NIH Stroke Score
Total Score:: 1
Course
<DIANNA PeckNP - Last Filed: 07/16/23 21:20>
Orders/Labs/Results
Orders:
Orders
07/16/23 18:58
Electrocardiogram (*1) Urgent
Reason for Study: Vertigo / Dizzy
EKG- Treatment ONCE
07/16/23 19:12
Complete Blood Count/With Diff Urgent
Comprehensive Metabolic Panel Urgent
Prothrombin Time Urgent
Troponin I Urgent
07/16/23 19:27
CT Head W/o Iv Contrast Urgent
Comment:
Reason For Exam: Lightheaded, Possible left facial droop
07/16/23 19:29
CR Chest - 2 Views Urgent
Comment:
Reason For Exam: Chest pain
07/16/23 19:37
Metoclopramide [Reglan] 10 mg IV NOW STA
Abnormal Lab Results
07/16/23 07/16/23
18:50 19:12
WBC 13.3 H 10^3/uL
(4.8-10.8)
RBC 3.88 L 10^6/uL
(4.70-6.10)
Hgb 11.5 L D g/dL
(13.0-18.0)
Hct 34.4 L %
(39.0-52.0)
Plt Count 421 H D 10^3/uL
(130-400)
Abs Immat Gran (auto) 0.1 H 10^3/uL
(0-0.05)
Absolute Neuts (auto) 9.0 H 10^3/uL
(1.4-6.5)
Absolute Monos (auto) 1.2 H 10^3/uL
(0.1-0.6)
Immature Gran % 0.6 H %
(0-0.5)
Lymphocytes % 19.5 L %
(20.5-51.1)
Sodium 134 L mmol/L
(135-145)
Chloride 94 L mmol/L
(98-107)
Glucose 144 H mg/dl
(70-99)
ALT 55 H U/L
(0-50)
POC Glucose 132 H mg/dl
(70-99)
07/16/23 19:12
07/16/23 19:12
Leukocytosis, H/H slightly low Plt slightly elevated. PT 14.3 with INR 1.12, Troponin 0.015, Chloride low. Glucose nonfasting. ALT slightly elevated.
Vital Signs
Initial and Last Documented VS:
Initial Vital Signs
Temp Pulse Resp BP Pulse Ox
97.8 F 106 18 98/67 99
07/16/23 18:52 07/16/23 18:52 07/16/23 18:52 07/16/23 18:52 07/16/23 18:52
Last Documented Vital Signs
Temp Pulse Resp BP Pulse Ox
97.8 F 90 24 104/70 99
07/16/23 18:52 07/16/23 20:15 07/16/23 20:15 07/16/23 20:00 07/16/23 20:15
<Ludin Teresa, DO - Last Filed: 07/16/23 19:42>
Orders/Labs/Results
Orders:
Orders
07/16/23 18:58
Electrocardiogram (*1) Urgent
Reason for Study: Vertigo / Dizzy
EKG- Treatment ONCE
07/16/23 19:12
Complete Blood Count/With Diff Urgent
Comprehensive Metabolic Panel Urgent
Prothrombin Time Urgent
Troponin I Urgent
07/16/23 19:27
CT Head W/o Iv Contrast Urgent
Comment:
Reason For Exam: Lightheaded, Possible left facial droop
07/16/23 19:29
CR Chest - 2 Views Urgent
Comment:
Reason For Exam: Chest pain
07/16/23 19:37
Metoclopramide [Reglan] 10 mg IV NOW STA
Abnormal Lab Results
07/16/23 07/16/23
18:50 19:12
WBC 13.3 H 10^3/uL
(4.8-10.8)
RBC 3.88 L 10^6/uL
(4.70-6.10)
Hgb 11.5 L D g/dL
(13.0-18.0)
Hct 34.4 L %
(39.0-52.0)
Plt Count 421 H D 10^3/uL
(130-400)
Abs Immat Gran (auto) 0.1 H 10^3/uL
(0-0.05)
Absolute Neuts (auto) 9.0 H 10^3/uL
(1.4-6.5)
Absolute Monos (auto) 1.2 H 10^3/uL
(0.1-0.6)
Immature Gran % 0.6 H %
(0-0.5)
Lymphocytes % 19.5 L %
(20.5-51.1)
Sodium 134 L mmol/L
(135-145)
Chloride 94 L mmol/L
(98-107)
Glucose 144 H mg/dl
(70-99)
ALT 55 H U/L
(0-50)
POC Glucose 132 H mg/dl
(70-99)
07/16/23 19:12
07/16/23 19:12
Vital Signs
Initial and Last Documented VS:
Initial Vital Signs
Temp Pulse Resp BP Pulse Ox
97.8 F 106 18 98/67 99
07/16/23 18:52 07/16/23 18:52 07/16/23 18:52 07/16/23 18:52 07/16/23 18:52
Last Documented Vital Signs
Temp Pulse Resp BP Pulse Ox
97.8 F 90 24 104/70 99
07/16/23 18:52 07/16/23 20:15 07/16/23 20:15 07/16/23 20:00 07/16/23 20:15
Ozlt;JULIANA Peck - Last Filed: 07/16/23 21:20>
MDM/Problems Addressed
Differential Diagnosis Includes:
Possible CVA,
MDM/Problems Addressed:
This is a 48 year old male that was sent in by the VN with possible CVA. Patient has CABG 8 days ago and today the VN felt that he had a left facial droop. Patient states that he feels this is his normal. States that he has had nausea vomiting and
lightheadedness.
Will check labs, CT head
Patient was seen by Dr. Teresa. He is in agreement that if the CT is normal, Patient would be able to go home. CT shows no acute process but there is a Chiari I malformation. Patient can follow up with the Neurologist. Patient to follow up with the
Home Assessment Nurse and return with any concerns.
Chronic conditions affecting care: Other (Recent CABG)
Acute Exacerbation and/or Progression of Chronic Illness: Other (High Cholesterol)
<JULIANA Peck - Last Filed: 07/16/23 21:20>
*Radiology
Radiology exam reviewed: radiology read reviewed (CT head-NO CT evidence for acute intracranial hemorrhage or transcortical infarct. Mild diffuse cerebral volume loss. Mild Chiari I malformation. Chest- Small left pleural effusion. Mid elevation
of the right hemidiaphragm. Recent CABG surgery)
*Pulse Oximetry
Patient hypoxic: no
*EKG
Interpreted by ED Provider?: Yes
Heart Rate: 96
Rate: normal
Rhythm: sinus
[place]: normal axis
Interval: long QT
QRS Pattern: normal QRS
Ischemia: no ischemia
*Ems Driver Interpretation
Rate: tachycardiac
Heart Rate: 100
Rhythm: sinus tachycardia
*Critical Care Note
Total Time (30-74mins, 75-104mins- exclusive of procedures): Not Applicable
ED Attending Note
<JULIANA Peck - Last Filed: 07/16/23 21:20>
-
Portions of this chart may have been created with voice recognition software.� Occasional wrong word or��sound alike� substitutions may have occurred due to the inherent limitations of voice recognition software.
<Ludin Teresa DO - Last Filed: 07/16/23 19:42>
ED Attending Note
Patient seen and examined by attending physician: Yes
I performed the substantive portion of visit, reviewed & personally made and approve the management plan that is documented in note by myself or GENE.: Yes
ED Attending Note:
I have seen and evaluated the patient with a [id number] encounter. I have spoken to the advance practicer provider and involved in the medical history, the physical exam, medical decision making.
Evaluation and management service: agree unless noted differently below.
Results interpretation: agree unless noted differently below.
Focused HPI: 48-year-old male presenting to the emergency department for evaluation of left facial droop. Patient states this was noted by his visiting nurse. He does not notice any facial droop and believes that the nurse is seeing a side effect
of his medications. Patient is on gabapentin and he states he feels drowsy. Of note, patient recently had CABG and was discharged recently
Physical exam: Sitting in bed comfortably. Heart regular rate and rhythm. Mild drooping of left lip but it completely resolves when he smiles. No flattening of the nasolabial fold. No other evidence of stroke
Medical Decision Making: I had Long discussion with patient. His NIH is 1 at best. It is likely 0 given that there is no flattening of the nasolabial fold and his questionable droop completely resolved when he smiles. Patient is already on Plavix
and aspirin and simvastatin. Chart check shows that he had carotid ultrasound in May showing no significant plaque. Patient is already medically optimized for stroke prophylaxis. Will obtain CT head, basic blood work and chest x-ray. I
discussed admission for MRI versus going home. Patient states he feels comfortable going home if workup is negative
Discharge Plan
Departure
Patient Disposition: Home (Routine Discharge)
Date of Disposition: 07/16/23
Time of Disposition: 21:09
Patient with high blood pressure during this ER visit?: No
Condition: Good
Covid-19: Not Applicable
Discharge Problem:
Nausea & vomiting, Lightheadedness
Instructions: Nausea and Vomiting, Adult, Dizziness, Nonvertigo, (DC)
Prescriptions:
No Action
multivitamin Tablet
1 tab PO DAILY
rosuvastatin 40 mg Tablet
40 mg PO DAILY
lisinopril 2.5 mg tablet
2.5 mg PO DAILY Qty: 30 5RF
clopidogrel 75 mg Tablet
75 mg PO DAILY Qty: 30 1RF
metoprolol tartrate [Lopressor] 50 mg tablet
50 mg PO BID Qty: 60 1RF
acetaminophen 325 mg Tablet
650 mg PO Q6HPRN PRN (Reason: mild pain,headache,temp >101F ) Qty: 0 0RF
sennosides-docusate sodium [Stool Softener-Stimulant Laxat] 8.6-50 mg Tablet
1 tab PO Q12 PRN (Reason: Constipation) Qty: 0 0RF
colchicine 0.6 mg Tablet
0.3 mg PO DAILY Qty: 14 0RF
insulin glargine [Lantus Solostar U-100 Insulin] 100 unit/mL (3 mL) Insulin Pen
10 unit SC HS Qty: 5 0RF
Rx Instructions:
E11.65
dapagliflozin propanediol [Farxiga] 10 mg Tablet
10 mg PO DAILY Qty: 30 0RF
gabapentin 100 mg Capsule
100 mg PO TID Qty: 30 0RF
oxycodone 5 mg Tablet
5 mg PO Q6HPRN PRN (Reason: mild pain) Qty: 20 0RF
Patient Comments:
07/16/2023: last filled 07/11/23, 20 tabs for 5 days from [id number]
aspirin 81 mg tablet,chewable
81 mg PO DAILY Qty: 1 0RF
Ozempic 0.25 mg or 0.5 mg (2 mg/3 mL) Pen Injector
0.5 mg SC SA Qty: 0 0RF
Rx Instructions:
for 4 weeks. Begin 07/12 (Saturday)
metformin 500 mg tablet extended release 24 hr
1,000 mg PO BID@0800,1700
Referrals:
Lester Renee MD [Active] - Call in 1-3 days for appt
Denise Andrews DO [Family Provider] - Follow up in 2-3 days
Activity Restrictions/Additional Instructions:
As discussed, your blood work shows that your WBC are very slightly elevated. Your H/H is slightly low but this goes along with recent surgery. Your Chest X-ray shows that you have a slight left pleural effusion. This is most likely due to surgery.
Please follow up with the Home Assessment Nurse. Continue with the medications that you have been prescribed. Your CT of the head shows no acute process. There is however a Chiari I malformation. This may have been there sine . Please follow up with the
Neurologist for further evaluation. Please continue with your 8-8oz glasses daily of water. IF YOU HAVE INCREASED DIZZINESS, WEAKNESS ON WITHER SIDE, OR YOU HAVE ANY OTHER CONCERNS PLEASE RETURN TO THE EMERGENCY ROOM.
Interventions
Interventions:
*Risk Screen - Suicide Last Done: 07/16/23 18:52
*General Assessment Last Done: 07/16/23 18:52
*Neglect/Abuse Screening Last Done: 07/16/23 18:52
ED- Fall Risk Assessment Last Done: 07/16/23 19:12
*ED COVID-19 Vaccine History Last Done: 07/16/23 19:10
ED- Neurological Assessment Last Done: 07/16/23 19:12
ED- Cardiac Assessment Last Done: 07/16/23 19:12
[2023-07-16 19:32] LABS: INR 1.12; PT 14.3 Sec (11.4-14.6)
[2023-07-16 19:45] LABS: Troponin I 0.015 ng/ml
[2023-07-16 19:46] LABS: ALT (SGPT) 55 U/L (0-50); AST (SGOT) 46 U/L (17-59); Albumin 4.5 g/dl (3.5-5.0); Alkaline Phosphatase 99 U/L (38-126); Blood Urea Nitrogen 16 mg/dl (9-20); Calcium 9.6 mg/dl (8.4-10.2); Carbon Dioxide 27 mmol/L (22-30); Chloride 94 mmol/L (98-107); Estimated Creatinine Clearance 118 ml/min; Glucose 144 mg/dl (70-99); Potassium 4.5 mmol/L (3.5-5.1); Sodium 134 mmol/L (135-145); Total Bilirubin 0.4 mg/dl (0.2-1.3); Total Protein 7.6 g/dl (6.3-8.2); eGFR > 60.00
[2023-07-16 20:00] VITALS: BP 104/70
[2023-07-16 21:00] VITALS: BP 107/77
== END 2023-07-16 21:30 | disposition home or self-care (01) ==
LOC: EMR 18:44
PROVIDERS: EMERGENCY PHYSICIAN Student in an Organized Health Care Education/Training Program; FAMILY PHYSICIAN Internal Medicine
DX: R11.2 Nausea with vomiting, unspecified (principal); R42 Dizziness and giddiness; G93.5 Compression of brain; I25.10 Atherosclerotic heart disease of native coronary artery without angina pectoris; I10 Essential (primary) hypertension; E78.00 Pure hypercholesterolemia, unspecified; E11.9 Type 2 diabetes mellitus without complications; F41.8 Other specified anxiety disorders; G47.30 Sleep apnea, unspecified; Z86.718 Personal history of other venous thrombosis and embolism; Z95.1 Presence of aortocoronary bypass graft; Z87.891 Personal history of nicotine dependence
CPT/HCPCS: 99284; 70450; 71046; 80053; 82962; 84484; 85025; 85610; 93005

== ENCOUNTER → 2023-08-23 07:04 | Outpatient (REF) | payer BC, SELFPAY | LOC: HWRCS 07:04 | PROVIDERS: ATTENDING PHYSICIAN Physician Assistant; FAMILY PHYSICIAN Internal Medicine | DX: I25.10 Atherosclerotic heart disease of native coronary artery without angina pectoris (principal); Z95.1 Presence of aortocoronary bypass graft; I42.9 Cardiomyopathy, unspecified | CPT/HCPCS: 93306 ==

== ENCOUNTER → 2024-03-31 14:26 | Outpatient (REF) | payer BC, SELFPAY | LOC: HWRAD 14:26 | PROVIDERS: ATTENDING PHYSICIAN Internal Medicine | DX: Z95.1 Presence of aortocoronary bypass graft (principal) | CPT/HCPCS: 71046 ==

== ENCOUNTER → 2024-08-06 12:55 | Outpatient (REF) | payer BC, SELFPAY | LOC: HWRCS 12:55 | PROVIDERS: ATTENDING PHYSICIAN Nuclear Medicine Nuclear Cardiology; FAMILY PHYSICIAN Internal Medicine | DX: I25.10 Atherosclerotic heart disease of native coronary artery without angina pectoris (principal); Z95.1 Presence of aortocoronary bypass graft; I42.9 Cardiomyopathy, unspecified | CPT/HCPCS: 93306 ==